=== PATIENT | female | born 1980 | race Caucasian/White ===

== ENCOUNTER 2020-04-10 10:07 | Emergency (ER) | payer SELFPAY ==
--- OUTSIDE RECORDS SUMMARY | 2020-04-10 10:10 | XMS REPORT | Clinical Summary ---
:1980 Author Organization [facility] Address [address] [place] [address] Care Team Providers Name Role Phone Asked, Pcp Primary Care Provider Unavailable Allergies Active Allergy Reactions Severity Noted Date Comments Aspirin 06/24/2018 Latex 06/24/2018 Morphine Other (See Comments) High 11/04/2018 Halluci nation, and very violent Onion Medium 03/28/2019 Swelling Allergic to ligia ons only, can have fruit Vancomycin Itching High 11/04/2018 Medications Medication Sig Dispensed Refills Start Date End Date Status gabapentin Take 400 mg by 0 Acti ve (NEURONTIN) 400 mg mouth 3 capsule (three) times a day. lisinopril Take 20 mg by 0 Activ e (PRINIVIL,ZESTRIL) mouth 2 (two) 20 mg tablet times a day. nicotine (NICODERM Place 1 patch 0 Active CQ) 7 mg/24 hr on the skin daily. ondansetron Take 4 mg by 0 Activ e (ZOFRAN) 4 MG mouth every 8 tablet (eight) hours as needed for nausea or vomiting. QUEtiapine Take 100 mg by 0 Acti ve (SEROquel) 100 MG mouth nightly. tablet docusate sodium Take 1 capsule 60 capsule 0 03/29/2019 0 (COLACE) 100 MG (100 mg total) 19 capsule by mouth 2 (two) times a day for 30 days. sucralfate Take 1 tablet 120 tablet 0 03/29/2019 04/28/20 Exp ired (CARAFATE) 1 gram (1 g total) by 19 tablet mouth 4 (four) times a day for 30 days. pantoprazole Take 1 tablet 60 tablet 0 03/29/2019 04/28/20 Ex pired (PROTONIX) 40 MG (40 mg total) 19 EC tablet by mouth 2 (two) times a day for 30 days. sucralfate Take 1 tablet 120 tablet 0 03/29/2019 04/28/20 Exp ired (CARAFATE) 1 gram (1 g total) by 19 tablet mouth 4 (four) times a day for 30 days. acetaminophen Take 2 tablets 60 tablet 0 04/17/2019 05/17/20 (TYLENOL) 325 MG (650 mg total) 19 tablet by mouth every 6 (six) hours as needed for headaches for up to 30 days. butalbital-acetami Take 1 tablet 30 tablet 0 04/17/2019 Discontinued nophen-caff by mouth every 19 (Re order) (FIORICET, ESGIC) 6 (six) hours 50-325-40 mg per as needed for tablet headaches for up to 30 days. methocarbamol Take 1 tablet 120 tablet 0 04/17/2019 05/17/20 (ROBAXIN) 500 MG (500 mg total) 19 tablet by mouth 4 (four) times a day for 30 days. butalbital-acetami Take 1 tablet 30 tablet 0 04/25/2019 nophen-caff by mouth every 19 (FIORICET, ESGIC) 6 (six) hours 50-325-40 mg per as needed for tablet headaches for up to 30 days. Active Problems Problem Noted Date Acute intractable headache 04/14/2019 Infected cat bite 11/04/2018 Status migrainosus 06/24/2018 Encounters Date Type Specialty Care Team Description 04/27/2019 Telephone Gastroenterology Saad rBadford MD 04/25/2019 Emergency Emergency Medicine Vincenzo, Adryan Nonintrac table Mohammad, DO episodic headac he, unspecified hea dache type (Primary D x) 04/13/2019 - Hospital Encounter Neurosurgery Tracy, Acute int ractable headache, unspecified headache type (Primary Dx); 04/17/2019 MD Kei Intractable episodic cluster headache; Faustino, Status migraino jhonatan Rivas MD after 04/10/2019 Social History Tobacco Use Types Packs/Day Years Used Date Current Every Day Smoker Cigarettes 0.5 Smokeless Tobacco: Never Used Alcohol Use Drinks/Week oz/Week Comments Yes rare Sex Assigned at Date Recorded Not on file Job Start Date Occupation Industry Not on file Not on file Not on file Travel History Travel Start Travel End No recent travel history available. Last Filed Vital Signs Vital Sign Reading Time Taken Comments Blood Pressure 172/86 04/25/2019 11:24 AM CDT Pulse 94 04/25/2019 11:24 AM CDT Temperature 36.7 C (98.1 F) 04/25/2019 11:24 AM CDT Respiratory Rate 18 04/25/2019 11:24 AM CDT Oxygen Saturation 95% 04/25/2019 11:24 AM CDT Inhaled Oxygen Concentration - - Weight 90.7 kg (200 lb) 04/25/2019 11:24 AM CDT Height 160 cm (5' 3") 04/25/2019 11:24 AM CDT Body Mass Index 35.43 04/25/2019 11:24 AM CDT Plan of Treatment Health Maintenance Due Date Last Done Comments CERVICAL CANCER SCREENING 11/19/1999 INFLUENZA VACCINE 05/01/2020 Implants Implanted Type Area Pharmacy Messenger Device Shelf Model / Identifier Expiration Serial / Date Lot Valve Strata Reg Hydcepls Adjstbl Ltxf - [id number] Cardiovascul ar N/A: [employer] PS 10/29/2021 [id number] / Implanted: Qty: 1 on 03/09/2019 by Irma Tucker MD at [facility] Implants N/A MEDICAL / [id number] Screw Bone Slf-Drl Mtrxnuro Ti 4mm - [id number] Cranial Plate or N/A: SYNTHES [id number] / Implanted: Qty: 6 on 03/09/2019 by Irma Tucker MD at [facility] [place] Cover N/A MAXIOFACIAL / IMPLANT Screw Bone Slf-Drl Mtrxnuro Ti 4mm - [id number] Cranial Plate or N/A: SYNTHES [id number] / Implanted: Qty: 1 on 03/09/2019 by Irma Tucker MD at [facility] [place] Cover N/A MAXIOFACIAL / IMPLANT Cover [place] Mtrxnuro For Shunt Ti Bl 17mm - [id number] Spinal Implants N/A: SYNTHES [id number] / Implanted: Qty: 1 on 03/09/2019 by Irma Tucker MD at [facility] N/A MAXIOFACIAL / IMPLANT Cover [place] Mtrxnuro For Shunt Ti Bl 17mm - [id number] Spinal Implants N/A: SYNTHES [id number] / Implanted: Qty: 1 on 03/09/2019 by Irma Tucker MD at [facility] N/A MAXIOFACIAL / IMPLANT Connector Lmbpertnl Str - [id number] Surgical N/A: [employer]IC [id number] / Implanted: Qty: 1 on 03/09/2019 by Irma Tucker MD at [facility] Implantable N/A NEUROSURGERY / Shunts or Shunt Extenders Procedures Procedure Name Priority Date/Time Associated Comments Diagnosis XR ABDOMEN 1 VW STAT 04/25/2019 12:46 Results for this PM CDT procedure are i n the results section. XR CERVICAL SPINE 1 VW STAT 04/25/2019 12:46 R esults for this PM CDT procedure are i n the results section. XR CHEST 1 VW STAT 04/25/2019 12:45 Results fo r this PM CDT procedure are i n the results section. XR SKULL < 4 VW STAT 04/25/2019 12:45 Results for this PM CDT procedure are i n the results section. CT HEAD WO CONTRAST STAT 04/25/2019 12:05 Resu lts for this PM CDT procedure are i n the results section. ESTIMATED GFR STAT 04/25/2019 11:41 Results fo r this AM CDT procedure are i n the results section. BASIC METABOLIC PANEL STAT 04/25/2019 11:41 Re sults for this AM CDT procedure are i n the results section. HC COMPLETE BLD COUNT STAT 04/25/2019 11:38 Re sults for this W/AUTO DIFF AM CDT procedure are i n the results section. ECG 12-LEAD STAT 04/17/2019 4:39 Results for this PM CDT procedure are i n the results section. NM TC 99M CSF SHUNT Routine 04/16/2019 12:59 Resu lts for this PATENCY PM CDT procedure are i n the results section. ESTIMATED GFR Routine 04/16/2019 2:37 Results fo r this AM CDT procedure are i n the results section. PHOSPHORUS LEVEL Routine 04/16/2019 2:37 Results for this AM CDT procedure are i n the results section. BASIC METABOLIC PANEL Routine 04/16/2019 2:37 Re sults for this AM CDT procedure are i n the results section. HC COMPLETE BLD COUNT Routine 04/16/2019 2:22 Re sults for this W/AUTO DIFF AM CDT procedure are i n the results section. XR CHEST 1 VW PORTABLE Routine 04/16/2019 12:43 R esults for this AM CDT procedure are i n the results section. XR ABDOMEN 1 VW Routine 04/16/2019 12:43 Results for this AM CDT procedure are i n the results section. IR LUMBAR PUNCTURE Routine 04/14/2019 3:03 Resul ts for this PM CDT procedure are i n the results section. PROTEIN, CSF Routine 04/14/2019 2:51 Results for this PM CDT procedure are i n the results section. GLUCOSE LEVEL, CSF Routine 04/14/2019 2:51 Resul ts for this PM CDT procedure are i n the results section. CSF CELL COUNT WITH Routine 04/14/2019 2:51 Resu lts for this DIFFERENTIAL PM CDT procedure are i n the results section. GRAM STAIN Routine 04/14/2019 2:51 Results for this PM CDT procedure are i n the results section. CSF CULTURE Routine 04/14/2019 2:51 Results for this PM CDT procedure are i n the results section. CT HEAD WO CONTRAST STAT 04/13/2019 11:57 Resu lts for this PM CDT procedure are i n the results section. HCG QUALITATIVE, URINE Routine 04/13/2019 11:39 R esults for this SCREEN PM CDT procedure are i n the results section. XR SKULL < 4 VW STAT 04/13/2019 8:43 Results for this PM CDT procedure are i n the results section. XR CHEST 2 VW STAT 04/13/2019 8:43 Results fo r this PM CDT procedure are i n the results section. XR CERVICAL SPINE 2 OR STAT 04/13/2019 8:43 R esults for this 3 VW PM CDT procedure are i n the results section. XR ABDOMEN AP AND STAT 04/13/2019 8:42 Result s for this LATERAL PM CDT procedure are i n the results section. ESTIMATED GFR STAT 04/13/2019 8:30 Results fo r this PM CDT procedure are i n the results section. COMPREHENSIVE STAT 04/13/2019 8:30 Results fo r this METABOLIC PANEL PM CDT procedure ar e in the results section. HC COMPLETE BLD COUNT STAT 04/13/2019 8:30 Re sults for this W/AUTO DIFF PM CDT procedure are i n the results section. after 04/10/2019 Results XR Abdomen 1 Vw (04/25/2019 12:46 PM CDT)Only the most recent of2 resultswithin the time period is included. Specimen Narrative Performed At Study:XR CERVICAL SPINE 1 VW, XR CHEST 1 VW, XR ABDOME N 1 VW, XR SKULL HM [facility] 4 VW History:headache shut eval COMPARISON:March 25, 2019 IMPRESSION: Single view of the skull, single view of the neck, sin gle view of the chest, 2 views of the abdomen. Right frontal approach [employer] shunt intact without discont inuity or kinking. The shunt courses on the right side of the head, neck, chest, abdomen with tip at the level of the pelvis. No acute osseous or soft tissue abnormality. No consol idation, pleural effusion, or pneumothorax. No bowel distention or free air. Large amount of stool present in the colon. Visualized bones withou t acute abnormality. [id number] Procedure Note Interface, Radiology Results Incoming - 04/25/2019 12:57 PM CDT Study:XR CERVICAL SPINE 1 VW, XR CHEST 1 VW, XR ABDOMEN 1 VW, XR SKULL 4 VW History:headache shut eval COMPARISON:March 25, 2019 IMPRESSION: Single view of the skull, single view of the neck, single view of the chest, 2 views of the abdomen. Right frontal approach [employer] shunt intact w ithout discontinuity or kinking. The shunt courses on the right side of the head, neck, chest, abdomen with tip at the level of the pelvis. No acute osseous or soft tissue abnormal ity. No consolidation, pleural effusion, or pneumothorax. No bowel distention or free air. Large amount of stool present in the colon. Visualized bones without acute abnormality. [id number] Performing Organization Address City/State/Zipcode Phone Number [facility] [address] [place] [address] XR Cervical Spine 1 Vw (04/25/2019 12:46 PM CDT) Specimen Narrative Performed At Study:XR CERVICAL SPINE 1 VW, XR CHEST 1 VW, XR ABDOME N 1 VW, XR SKULL [facility] 4 VW History:headache shut eval COMPARISON:March 25, 2019 IMPRESSION: Single view of the skull, single view of the neck, sin gle view of the chest, 2 views of the abdomen. Right frontal approach [employer] shunt intact without discont inuity or kinking. The shunt courses on the right side of the head, neck, chest, abdomen with tip at the level of the pelvis. No acute osseous or soft tissue abnormality. No consol idation, pleural effusion, or pneumothorax. No bowel distention or free air. Large amount of stool present in the colon. Visualized bones withou t acute abnormality. [id number] Procedure Note Interface, Radiology Results Incoming - 04/25/2019 12:57 PM CDT Study:XR CERVICAL SPINE 1 VW, XR CHEST 1 VW, XR ABDOMEN 1 VW, XR SKULL 4 VW History:headache shut eval COMPARISON:March 25, 2019 IMPRESSION: Single view of the skull, single view of the neck, single view of the chest, 2 views of the abdomen. Right frontal approach [employer] shunt intact w ithout discontinuity or kinking. The shunt courses on the right side of the head, neck, chest, abdomen with tip at the level of the pelvis. No acute osseous or soft tissue abnormal ity. No consolidation, pleural effusion, or pneumothorax. No bowel distention or free air. Large amount of stool present in the colon. Visualized bones without acute abnormality. [id number] Performing Organization Address City/State/Zipcode Phone Number [facility] [address] [place] [address] XR Chest 1 Vw (04/25/2019 12:45 PM CDT) Specimen Narrative Performed At Study:XR CERVICAL SPINE 1 VW, XR CHEST 1 VW, XR ABDOME N 1 VW, XR SKULL HM [facility] 4 VW History:headache shut eval COMPARISON:March 25, 2019 IMPRESSION: Single view of the skull, single view of the neck, sin gle view of the chest, 2 views of the abdomen. Right frontal approach [employer] shunt intact without discont inuity or kinking. The shunt courses on the right side of the head, neck, chest, abdomen with tip at the level of the pelvis. No acute osseous or soft tissue abnormality. No consol idation, pleural effusion, or pneumothorax. No bowel distention or free air. Large amount of stool present in the colon. Visualized bones withou t acute abnormality. [id number] Procedure Note Interface, Radiology Results Incoming - 04/25/2019 12:57 PM CDT Study:XR CERVICAL SPINE 1 VW, XR CHEST 1 VW, XR ABDOMEN 1 VW, XR SKULL 4 VW History:headache shut eval COMPARISON:March 25, 2019 IMPRESSION: Single view of the skull, single view of the neck, single view of the chest, 2 views of the abdomen. Right frontal approach [employer] shunt intact w ithout discontinuity or kinking. The shunt courses on the right side of the head, neck, chest, abdomen with tip at the level of the pelvis. No acute osseous or soft tissue abnormal ity. No consolidation, pleural effusion, or pneumothorax. No bowel distention or free air. Large amount of stool present in the colon. Visualized bones without acute abnormality. [id number] Performing Organization Address City/State/Zipcode Phone Number [facility] [address] [place] [place] [address] XR Skull < 4 Vw (04/25/2019 12:45 PM CDT)Only the most recent of2 results within the time period is included. Specimen Narrative Performed At Study:XR CERVICAL SPINE 1 VW, XR CHEST 1 VW, XR ABDOME N 1 VW, XR SKULL HM [facility] 4 VW History:headache shut eval COMPARISON:March 25, 2019 IMPRESSION: Single view of the skull, single view of the neck, sin gle view of the chest, 2 views of the abdomen. Right frontal approach [employer] shunt intact without discont inuity or kinking. The shunt courses on the right side of the head, neck, chest, abdomen with tip at the level of the pelvis. No acute osseous or soft tissue abnormality. No consol idation, pleural effusion, or pneumothorax. No bowel distention or free air. Large amount of stool present in the colon. Visualized bones withou t acute abnormality. [id number] Procedure Note Interface, Radiology Results Incoming - 04/25/2019 12:57 PM CDT Study:XR CERVICAL SPINE 1 VW, XR CHEST 1 VW, XR ABDOMEN 1 VW, XR SKULL 4 VW History:headache shut eval COMPARISON:March 25, 2019 IMPRESSION: Single view of the skull, single view of the neck, single view of the chest, 2 views of the abdomen. Right frontal approach [employer] shunt intact w ithout discontinuity or kinking. The shunt courses on the right side of the head, neck, chest, abdomen with tip at the level of the pelvis. No acute osseous or soft tissue abnormal ity. No consolidation, pleural effusion, or pneumothorax. No bowel distention or free air. Large amount of stool present in the colon. Visualized bones without acute abnormality. [id number] Performing Organization Address City/State/Zipcode Phone Number [facility] [address] [place] [address] CT Head Wo Contrast (04/25/2019 12:05 PM CDT)Only the most recent of2 results within the time period is included. 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 TECHNIQUE: Noncontrast enhanced images of the brain we re obtained from the skull base to the vertex. Both soft tissue and bon e reconstruction algorithms were performed. CT scans are performed us ing radiation dose reduction techniques. Technical factors are evaluated and adjusted to ensure appropriate moder ation of exposure. Automated dose management technology is applied to adj ust radiation exposure while achieving a diagnostic qu ality image. FINDINGS: Artifacts obscure some details. There is a right frontal intraventricular shunt cathet er which is relatively stable. There is relatively stable decrease d density in the right frontal lobe around the catheter. There is no ev idence of acute intracranial hemorrhage or mass, hydroce phalus or midline shift, stroke or thrombus in the vessels. T he ventricles are small appearing. This is relatively stable. The sella is enlarged and partially empty. The orbits, sinuses and mastoid air cells do not show acute abnormality. There is mild mucosal thickening in the left ethmoid s inus which is stable. The nasal septum is deviated. There is nonspec ific increased bone density. IMPRESSION: No significant changes in the brain or extra axial reg ion compared to prior exam. The ventricles are small. Th is is stable however. Nonspecific enlarged partially empty deb la. Nonspecific mild mucosal thickening in t he left ethmoid sinus. 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 TECHNIQUE: Noncontrast enhanced images o f the brain were obtained from the skull base to the vertex. Both soft tissue and bone reconstruction algorithms were performed. CT scans are performed using radiation dose reduction techniques. Technical factors are evaluated and adjusted to ensure belle ropriate moderation of exposure. Automated dose management technology is applied to adjust radiation exposure while achieving a diagnostic quality image. FINDINGS: Artifacts obscure some details. There is a right frontal intraventricula r shunt catheter which is relatively stable. There is relatively stable decreased density in the right frontal lobe around the catheter. There is no evidence of acute intracranial hemorrhage or mass, hydroce phalus or midline shift, stroke or thrombus in the vessels. The ventricles are small appearing. This is relatively stable. The sella is enlarged and partially empty. The orbits, sinuses and mastoid air cell s do not show acute abnormality. There is mild mucosal thickening in the left ethmoid sinus which is stable. The nasal septum is deviated. There is nonspecific increased bone density. IMPRESSION: No significant changes in the brain or e xtra axial region compared to prior exam. The ventricles are small. This is stable however. Nonspecific enlarged partially empty deb la. Nonspecific mild mucosal thickening in t he left ethmoid sinus. [facility]-[id number] Performing Organization Address City/[facility]/Zipcode Phone Number [facility] [address] [place] [address] Estimated GFR (04/25/2019 11:41 AM CDT)Only the most recent of3 resultswithin the time period is included. Pathologist [facility] Estimated GFR >=90 mL/min/1.73 [facility] Comment: [address] Catergory Units Interpretation HOS PITAL G1 >=90 Normal or high G2 60-89 Mildly decreased G3a 45-59 Mildly to moderately decreas ed G3b 30-44 Moderately to severely decre ased G4 15-29 Severely decreased G5 <15 Kidney failure The eGFR was calculated using the Chronic Kidney Disea se Epidemiology Collaboration (CKD-EPI) equation. Interpretation is based on recommendations of the National Kidney Foundation-Kidney Disease Outcomes Daniel lity Initiative (NKF-KDOQI) published in 2014. Specimen Plasma specimen Performing Organization Address City/[facility]/Zipcode Phone Number [facility] DEPARTMENT OF PATHOLOGY AND [address] [place] [address] GENOMIC MEDICINE [facility] [address] [place], [place] [address] [facility] Basic metabolic panel (04/25/2019 11:41 AM CDT)Only the most recent of2 results within the time period is included. Pathologist [facility] nature Sodium 141 135 - 148 mEq/L [facility] Potassium 4.2 3.5 - 5.0 mEq/L [facility] Chloride 107 98 - 112 mEq/L [facility] CO2 23 (L) 24 - 31 mEq/L [facility] Anion gap 11@ANIO 7 - 15 mEq/L [facility] BUN 10 6 - 20 mg/dL [facility] Creatinine 0.70 0.50 - 0.90 mg/dL [facility] Glucose 108 (H) 65 - 99 mg/dL [facility] Calcium 9.5 8.3 - 10.2 mg/dL [facility] Specimen Plasma specimen Performing Organization Address City/State/Zipcode Phone Number [facility] DEPARTMENT OF PATHOLOGY AND [address] [place] [address] GENOMIC MEDICINE [facility] [address] [place], [place] [address] [facility] CBC with platelet and differential (04/25/2019 11:38 AM CDT)Only the most recent of3 resultswithin the time period is included. Pathologist Sig nature WBC 11.49 (H) 4.50 - 11.00 k/uL [facility] RBC 4.32 4.20 - 5.50 m/uL [facility] HGB 12.4 12.0 - 16.0 g/dL [facility] HCT 37.9 37.0 - 47.0 % [facility] MCV 87.7 82.0 - 100.0 fL [facility] MCH 28.7 27.0 - 34.0 pg [facility] MCHC 32.7 31.0 - 37.0 g/dL [facility] RDW - SD 46.5 37.0 - 55.0 fL [facility] MPV 10.7 8.8 - 13.2 fL [facility] Platelet count 316 150 - 400 k/uL [facility] Nucleated RBC 0.00 /100 WBC [facility] Neutrophils 60.8 39.0 - 69.0 % [facility] Lymphocytes 31.2 25.0 - 45.0 % [facility] Monocytes 5.1 0.0 - 10.0 % [facility] Eosinophils 1.8 0.0 - 5.0 % [facility] Basophils 0.5 0.0 - 1.0 % [facility] Specimen Blood Performing Organization Address City/State/Zipcode Phone Number [facility] DEPARTMENT OF PATHOLOGY AND [address] [place] [address] GENOMIC MEDICINE [facility] [address] [place], [place] [address] HOSPITAL ECG 12 lead (04/17/2019 4:39 PM CDT) Pathologist Sig nature Ventricular rate 93 [facility] Atrial rate 93 [facility] [place] interval 132 [facility] QRSD interval 86 [facility] QT interval 368 [facility] QTC interval 457 [facility] P axis 1 48 [facility] QRS axis 1 24 [facility] T wave axis 52 [facility] EKG impression Normal sinus [facility] MUSE rhythm-Normal ECG-In automated comparison with ECG of 25-MAR-2019 18:28,-No significant change was found- Specimen Narrative Performed At This result has an attachment that is no t available. Performing Organization Address City/State/Zipcode Phone Number [facility] MUSE [address] [place] [address] NM Tc 99M Csf Shunt Patency (04/16/2019 12:59 PM CDT) Specimen Narrative Performed At PROCEDURE: NM TC 99M CSF SHUNT PATENCY [facility] INDICATION: Evaluate [employer] shunt patency. TECHNIQUE: The patient was injected with 1 mCi of Tc -99m DTPA into the [employer] shunt reservoir by a client support representative from the Neuros urgery service. Tracer was sterilized by filtration through a 0.2 micr on inline filter. Planar dynamic images of the shunt were obtained. FINDINGS: Tracer migration through the right [employer] shun t is normal. Activity is seen within the distal tubing by 10 caden shaun with subsequent normal mixing of tracer with peritoneal fluid. IMPRESSION: 1. Normally functioning [employer] shunt. [facility]-[id number] Procedure Note Interface, Radiology Results Incoming - 04/16/2019 2:14 PM CDT PROCEDURE: NM TC 99M CSF SHUNT PATENCY INDICATION: Evaluate [employer] shunt patency. TECHNIQUE: The patient was injected wit h 1 mCi of Tc-99m DTPA into the [employer] shunt reservoir by a client support representative from the Neurosurgery service. Tracer was sterilized by filtration through a 0.2 micron inline filter. Planar dynamic images of the shunt were obtained. FINDINGS: Tracer migration through the right ENGRAVER [employer]AT[employer] shunt is normal. Activity is seen within the distal tubing by 10 minutes with subsequent normal mixing of tracer with peritoneal fluid. IMPRESSION: 1. Normally functioning ENGRAVER [employer]AT[employer] shunt. [id number] Performing Organization Address [facility] Phone Number [facility] [address] [place] [address] Phosphorus level (04/16/2019 2:37 AM CDT) Pathologist [facility] Phosphorus 2.7 2.4 - 4.5 mg/dL [facility] L Specimen Plasma specimen Performing Organization Address [facility] Phone Number [facility] DEPARTMENT OF PATHOLOGY AND [address] [place] [address] [phone] GENOMIC MEDICINE [address] [address] XR Chest 1 Vw Portable (04/16/2019 12:43 AM CDT) Specimen Narrative Performed At EXAMINATION: XR CHEST 1 VW PORTABLE [facility] CLINICAL HISTORY: shunt catheter movem ent COMPARISON: 04/13/2019 IMPRESSION: Right-sided ventriculoperitoneal shunt catheter is int act, without kink or fracture. Chronic appearing interstitial lung markings. No conso lidations, effusions, or pneumothorax. Cardiac silhouette is upper normal. No acute osseous abnormalities. [facility]-[id number] Procedure Note Interface, Radiology Results Incoming - 04/16/2019 5:04 AM CDT EXAMINATION: XR CHEST 1 VW PORTABLE CLINICAL HISTORY: shunt catheter moveme nt COMPARISON: 04/13/2019 IMPRESSION: Right-sided ventriculoperitoneal shunt c atheter is intact, without kink or fracture. Chronic appearing interstitial lung joseluis ings. No consolidations, effusions, or pneumothorax. Cardiac silhouette is upper normal. No acute osseous abnormalities. [facility]-[id number] Performing Organization Address [facility] Phone Number [facility] [address] [place] [address] IR Lumbar Puncture by Radiology (04/14/2019 3:03 PM CDT) Specimen Narrative Performed At EXAMINATION: IR LUMBAR PUNCTURE [facility] CLINICAL HISTORY: recent ENGRAVER FLAT[employer] shunt revi luis SMITH COMPARISON: None. Findings: Informed consent was obtained. Lower back was prepped and draped in usual sterile fashion. 1% lidocaine was used for local anesthesia. A 22-gauge 3.5 inch needle was advanced into spinal ca nal at the L4-L5 level under intermittent fluoroscopic gu idance. Opening pressure was 22 cm of water 13 cc of clear CSF fluid was withdrawn. No complications. Total fluoroscopic time was 1 minute with 18 seconds. Total air kerma was 37 mGy. IMPRESSION: Successful fluoroscopic guided lumbar pu ncture. [facility]-[id number] Procedure Note Hm Interface, Radiology Results Incoming - 04/14/2019 4:21 PM CDT EXAMINATION: IR LUMBAR PUNCTURE CLINICAL HISTORY: recent ENGRAVER FLATWARE shunt olya ion SMITH COMPARISON: None. Findings: Informed consent was obtained. Lower moses k was prepped and draped in usual sterile fashion. 1% lidocaine was used for local anesthesia. A 22-gauge 3.5 inch needle was advanced into spinal canal at the L4-L5 level under intermittent fluoroscopic guidance. Opening pressure was 22 cm of water 13 cc of clear CSF fluid was withdrawn. No complications. Total fluoroscopic time was 1 minute wit h 18 seconds. Total air kerma was 37 mGy. IMPRESSION: Successful fluoroscopic guided lumbar pu ncture. [facility]-[id number] Performing Organization Address City/[facility] Phone Number [facility] [address] [place] [id number] Gram stain (04/14/2019 2:51 PM CDT) Gram stain isolate No WBC's or organisms seen. [facility] Specimen Information Specimen Source: CSF (Spinal Fluid) Specimen Site: No tube number noted Specimen Cerebrospinal fluid - No tube number not ed Performing Organization Address City/[facility] Phone Number [facility] DEPARTMENT OF PATHOLOGY AND [address] [place] [address] [phone] [address] CSF culture (04/14/2019 2:51 PM CDT) CSF culture No growth after 72 hours [facility] isolate Comment: HOSPITAL Specimen Information Specimen Source: CSF (Spinal Fluid) Specimen Site: No tube number noted Specimen Cerebrospinal fluid - No tube number not ed Performing Organization Address [facility] [place]/[facility] Phone Number [facility] DEPARTMENT OF PATHOLOGY AND [address] [place] [address] [phone] [place] [address] CSF cell count with differential (04/14/2019 2:51 PM CDT) Pathologist Sig nature Color, CSF Colorless [facility] Appearance, CSF Clear [facility] RBC, CSF 8 (H) 0 - 1 /CMM [facility] WBC, CSF 2 0 - 5 /CMM [facility] CSF mononuclear cell 2/CMM [facility] Specimen Cerebrospinal fluid Performing Organization Address City/[facility] Phone Number [facility] DEPARTMENT OF PATHOLOGY AND [address] [place] [address] [phone] [address] Protein, CSF (04/14/2019 2:51 PM CDT) Pathologist Sig nature Protein, CSF 42 15 - 45 mg/dL [facility] Specimen Cerebrospinal fluid Performing Organization Address [facility] [place]/[facility] Phone Number [facility] DEPARTMENT OF PATHOLOGY AND [address] [place] [address] [phone] [address] Glucose level, CSF (04/14/2019 2:51 PM CDT) Pathologist Sig nature Glucose, CSF 62 40 - 70 mg/dL [facility] Specimen Cerebrospinal fluid Performing Organization Address [facility] Phone Number [facility] DEPARTMENT OF PATHOLOGY AND [address] [place] [address] [phone] [address] hCG qualitative, urine screen (04/13/2019 11:39 PM CDT) hCG qualitative, NegativeComment: [facility] urine Sensitivity of HCG [facility] test: 25 mIU/mL Specimen Urine Performing Organization Address City/[facility] Phone Number [facility] DEPARTMENT OF PATHOLOGY AND [address] [place] [address] [phone] [address] XR Chest 2 Vw (04/13/2019 8:43 PM CDT) Specimen Narrative Performed At Examination: XR CHEST 2 VW [facility] Clinical History: Fatigue and malaise Comparison: 03/25/2019. Technique: Frontal and lateral views of the chest were obtained. Findings: Lungs and pleural surfaces are clear. Cardiomediastina l silhouette and pulmonary vascularity are within normal limits. Bones are intact. [employer]RAVER [employer] shunt courses over the right chest. Impression: No active cardiopulmonary disease identi fied. [facility]-[id number] Procedure Note Interface, Radiology Results Incoming - 04/13/2019 8:56 PM CDT Examination: XR CHEST 2 VW Clinical History: Fatigue and malaise Comparison: 03/25/2019. Technique: Frontal and lateral views of the chest were obtained. Findings: Lungs and pleural surfaces are clear. Ca rdiomediastinal silhouette and pulmonary vascularity are within normal limits. Bones are intact. [employer]VER [employer] shunt courses over the right chest. Impression: No active cardiopulmonary disease identi fied. [facility]-[id number] Performing Organization Address [facility] Phone Number [facility] [address] [place] [address] XR Cervical Spine 2 Or 3 Vw (04/13/2019 8:43 PM CDT) Specimen Narrative Performed At EXAMINATION: XR CERVICAL SPINE 2 OR 3 VW [facility] CLINICAL HISTORY: Neck pain initial ex am COMPARISON: 03/25/2019. IMPRESSION: 2 views provided. Radiodense portions of the radiodense tubing appear in tact as it traverses the right neck at chest wall s oft tissues. C1-C7 vertebrae visualized. The alignment is within normal limits. N o subluxation. Vertebral body and intervertebral disc h eights are preserved. No prevertebral soft tissue swelling. Tongue piercing noted. [facility]-[id number] Procedure Note Interface, Radiology Results Incoming - 04/13/2019 8:52 PM CDT EXAMINATION: XR CERVICAL SPINE 2 OR 3 VW CLINICAL HISTORY: Neck pain initial exa m COMPARISON: 03/25/2019. IMPRESSION: 2 views provided. Radiodense portions of the radiodense tu kendell appear intact as it traverses the right neck at chest wall soft tissues. C1-C7 vertebrae visualized. The alignment is within normal limits. N o subluxation. Vertebral body and intervertebral disc h eights are preserved. No prevertebral soft tissue swelling. Tongue piercing noted. [facility]-[id number] Performing Organization Address [facility] Phone Number [facility] [address] [place] [address] XR Abdomen Ap And Lateral (04/13/2019 8:42 PM CDT) Specimen Narrative Performed At EXAMINATION: XR ABDOMEN AP AND LATERAL [facility] CLINICAL HISTORY: Breakdown (mechanical) of surgically created arteriovenous shunt COMPARISON: 03/25/2019. FINDINGS: A right side [employer]VER [employer] shunt with the tip now within the mike on of the mid pelvis. There is no evidence of kinking or fracture of the visualized [employer] shunt along the abdomen. The bowel gas pattern is nons pecific. No radiopaque calcifications are identified . The lung bases are clear. Regional skeletal structures are within normal limits. IMPRESSION: Right ENGRAVER [employer]AT[employer] shunt along the right side of the abdomen rem ains intact without evidence of kinking or fracture. [id number] Procedure Note Hm Interface, Radiology Results Incoming - 04/13/2019 8:59 PM CDT EXAMINATION: XR ABDOMEN AP AND LATERAL CLINICAL HISTORY: Breakdown (mechanical) of surgically created arteriovenous shunt COMPARISON: 03/25/2019. FINDINGS: A right side ENGRAVER FLAT[employer] shunt with the tip now w ithin the region of the mid pelvis. There is no evidence of kinking or fracture of the visualized [employer] shunt along the abdomen. The bowel gas pattern is nonspecific. No radiopaque calcifications are identified . The lung bases are clear. Regional skeletal structures are within normal limits. IMPRESSION: Right ENGRAVER FLATWARE shunt along the right side of t he abdomen remains intact without evidence of kinking or fracture. [id number] Performing Organization Address City/State/Zipcode Phone Number [facility] [address] [place] [address] Comprehensive metabolic panel (04/13/2019 8:30 PM CDT) Sodium 146 135 - 148 [facility] mEq/L [facility] Potassium 4.2 3.5 - 5.0 [facility] mEq/L [facility] Chloride 106 98 - 112 [facility] mEq/L HOSPITAL CO2 25 24 - 31 mEq/L [facility] Anion gap 15@ANIO 7 - 15 mEq/L [facility] BUN 8 6 - 20 mg/dL [facility] Creatinine 0.93 (H) 0.50 - 0.90 [facility] mg/dL [facility] Glucose 123 (H) 65 - 99 mg/dL [facility] Calcium 9.5 8.3 - 10.2 [facility] mg/dL [facility] Protein 7.8 6.3 - 8.3 [facility] Comment: g/dL HOSPITAL 4.6-7.0 g/dL 1 week 4.4-7.6 g/dL 7 months-1year 5.1-7.3 g/dL 1-2 years 5.6-7.5 g/dL >3 years 6.0-8.0 g/dL 18-150 6.3-8.3 g/dL Albumin 3.5 3.5 - 5.0 [facility] g/dL HOSPITAL A/G ratio 0.8 0.7 - 3.8 [facility] Alkaline phosphatase 66 35 - 104 U/L [facility] AST 17 10 - 35 U/L [facility] ALT 17 5 - 50 U/L [facility] Total bilirubin 0.3 0.0 - 1.2 [facility] mg/dL [facility] Specimen Plasma specimen Performing Organization Address City/State/Zipcode Phone Number [facility] DEPARTMENT OF PATHOLOGY AND [address] [place], [place] [address] GENOMIC [address] [address] after 04/10/2019 Advance Directives For more information, please contact: [phone] Type Date Recorded Patient Health Care Liaison Explanati on Advance Directives, Living 06/24/2018 7:17 PM Will and Medical Power of Tests Superintendent Advance Directives, Living 11/04/2018 1:29 AM Will and Medical Power of Tests Superintendent Code Status Date Activated Date Inactivated Comments Full Code 03/27/2019 12:17 PM 03/29/2019 8:18 PM Code Status decision reached by: Patient
--- OUTSIDE RECORDS SUMMARY | 2020-04-10 10:11 | XMS REPORT | Continuity of Care Document ---
:1980 Author Organization [facility] t Address [address] [place] [address] Care Team Providers Name Role Phone Asked, Pcp Primary Care Physician Unavailable Sanchez PAZ Attending Clinician Monie Loya DO Attending Clinician Rossana PAZ Attending Clinician Carlie PAZ Attending Clinician ANTHONY Attending Clinician Unavailable CARLIE Admitting Clinician Unavailable ANTHONY Admitting Clinician Unavailable GERMAN Admitting Clinician Unavailable Payers Payer Name Policy Type Policy Number Effective Date Expiration Date S ource Problems Condition Condition Condition Status Onset Resolution Last Treating Co mments Source Name Details Category Date Date Treatment Clinician Date Acute Acute Disease Active [place] intractabl intractabl 9-14 Me thodi e headache e headache 00:00: st 00 Infected Infected Disease Active [place] cat bite cat bite 4-06 Method i 00:00: st 00 Status Status Disease Active 2017-08 [place] migrainosu migrainosu 1-24 Me thodi s s 00:00: st 00 Allergies, Adverse Reactions, Alerts Allergy Allergy Status Severity Reaction(s) Onset Inactive Treating Comm ents Source Name Type Date Date Clinician Onion Propensi Active Moderate Swelling [place] ty to 03-28 Allergic [facility]i adverse 00:00: to onions st reaction 00 only, can s to have drug fruit Morphine Propensi Active Other (See Hallucina [place] ty to Comments) 11-04 tion, and Meth vladislav adverse 00:00: very st reaction 00 violent s to drug Vancomyc Propensi Active Itching [place] in ty to 11-04 Methodi adverse 00:00: st reaction 00 s to drug Aspirin Propensi Active 2017-08 [place] ty to 08-24 Methodi adverse 00:00: st reaction 00 s to drug Latex Propensi Active 2017-08 [place] ty to 08-24 Methodi adverse 00:00: st reaction 00 s to drug onion DA Active MO 2017-08 [facility] 14 Clear 00:00: Rao 00 [facility] coconut DA Active SV 2017-08 [facility] 08-14 Clear 00:00: Rao [facility] bee DA Active SV 2017-08 [facility] 14 Clear 00:00: Rao 00 [facility] morphine DA Active MO [facility] 9-12 Clear 00:00: Rao 00 [facility] aspirin DA Active ID [facility] 9-12 Clear 00:00: Rao 00 [facility] latex DA Active ID [facility] 9-12 Clear 00:00: Rao 00 [facility] morphine DA Active U [facility] 8-30 [place] 00:00: d 00 [facility] aspirin DA Active U [facility] 8-30 [place] 00:00: d [facility] latex DA Active U [facility] 8-30 [place] 00:00: d 00 [facility] [place] Social History Social Habit Start Date Stop Date Quantity Comments Source History of tobacco Cigarette Smoker [place] use Taoist Sex Assigned At [place] Taoist Cigarettes smoked 2019-04-25 2019-04-25 [place] current (pack per 00:00:00 00:00:[address] day) - Reported Alcohol intake 2019-04-25 2019-04-25 Current drinker [place] 00:00:00 00:00:00 of alcohol Taoist (finding) Alcohol Comment 2019-04-25 2019-04-25 [facility] 00:00:00 00:00:00 Taoist Smoking Status Start Date Stop Date Source Current every day smoker 2019-04-25 00:00:00 Teres[facility] long Taoist Medications Ordered Filled Start Stop Current Ordering Indication Dosage Frequency Signature Comments Components Source Medication Medication Date Date Medication? Clinician (SIG) Name Name gloria- 2019- 2019- No 1{tbl} Q6H Take 1 [place] acetaminoph 9-25 10-25 tablet by Me thodi en-caff 00:00: 23:[address] (FIORICET, 00 :00 every 6 ESGIC) (six) 50-325-40 hours as mg per needed for tablet headaches for up to 30 days. gabapentin 2018- Yes 400mg Q.[id number] Take 400 [place] (NEURONTIN) 9-17 [id number] mg by M ethodi 400 mg 18:13: 3D mouth 3 st capsule 01 (three) times a day. lisinopril 2018-0 Yes 20mg Q.5D Take 20 mg [place] (PRINIVIL,Z 9-17 by mouth 2 Me thodi ESTRIL) 20 18:13: (two) st mg tablet 01 times a day. nicotine 2018- Yes 1{patch Q24H Place 1 Teresita mercedes (NICODERM 9-17 } patch on Method i CQ) 7 mg/24 18:13: the skin st hr 01 daily. ondansetron 2018-0 Yes 4mg Q8H Take 4 mg [place] (ZOFRAN) 4 9-17 by mouth Metho di MG tablet 18:13: every 8 st 01 (eight) hours as needed for nausea or vomiting. QUEtiapine 2018-0 Yes 100mg QD Take 100 [place] (SEROquel) 9-17 mg by Methodi 100 MG 18:13: mouth st tablet 01 nightly. acetaminoph 2018- 2019- No 650mg Q6H Take 2 [place] en 9-17 10-17 tablets Methodi (TYLENOL) 00:00: 23:59 ([address] 325 MG 00 :00 total) by tablet mouth every 6 (six) hours as needed for headaches for up to 30 days. methocarbam 2019- No 500mg Q.25D Take 1 [place] ol 9-17 10-17 tablet Methodi (ROBAXIN) 00:00: 23:59 ([address] 500 MG 00 :00 total) by tablet mouth 4 (four) times a day for 30 days. butalbital- 2019- No 1{tbl} Q6H Take 1 [place] acetaminoph 04-17 tablet by Me wright en-caff 00:00: 00:[address] (FIORICET, 00 :00 every 6 ESGIC) (six) 50-325-40 hours as mg per needed for tablet headaches for up to 30 days. docusate 2018- No 100mg Q.5D Take 1 [place] sodium 03-29 capsule Methodi (COLACE) 00:00: 23:59 ([address] 100 MG 00 :00 total) by capsule mouth 2 (two) times a day for 30 days. sucralfate 2018- No 1g Q.25D Take 1 Teresita ston (CARAFATE) 03-29 tablet (1 Met hodi 1 gram 00:00: 23:59 g total) st tablet 00 :00 by mouth 4 (four) times a day for 30 days. pantoprazol 2018- No 40mg Q.5D Take 1 Teresita ston e 03-29 tablet (40 Methodi (PROTONIX) 00:00: 23:59 mg total) s t 40 MG EC 00 :00 by mouth 2 tablet (two) times a day for 30 days. sucralfate 2018- No 1g Q.25D Take 1 Teresita ston (CARAFATE) 03-29 tablet (1 Met hodi 1 gram 00:00: 23:59 g total) st tablet 00 :00 by mouth 4 (four) times a day for 30 days. Vital Signs Vital Name Observation Time Observation Value Comments Source Systolic blood 2019-04-25 11:24:00 172 mm[Hg] Manda n Taoist pressure Diastolic blood 2019-04-25 11:24:00 86 mm[Hg] [place] Taoist pressure Heart rate 2019-04-25 11:24:00 94 /min Baldo Ching Body temperature 2019-04-25 11:24:00 36.72 Shereen Deena ton Taoist Respiratory rate 2019-04-25 11:24:00 18 /min Deena marr Taoist Body height 2019-04-25 11:24:00 160 cm Baldo Ching Body weight 2019-04-25 11:24:00 90.719 kg Baldo Ching BMI 2019-04-25 11:24:00 35.43 kg/m2 Baldo Ching Oxygen saturation in 2019-04-25 11:24:00 95 /min Baldo Ching Arterial blood by Pulse oximetry Procedures Procedure Date / Time Performed Performing Clinician Sourc e XR ABDOMEN 1 VW 2019-04-25 12:46:22 Maryann Loya XR CERVICAL SPINE 1 VW 2019-04-25 12:46:09 Maryann Loya XR CHEST 1 VW 2019-04-25 12:45:49 Maryann Loya XR SKULL < 4 VW 2019-04-25 12:45:[address] HEAD WO CONTRAST 2019-04-25 12:05:19 Maryann Loya ston Taoist BASIC METABOLIC PANEL 2019-04-25 11:41:00 Maryann Loya ESTIMATED GFR 2019-04-25 11:41:00 Maryann Loya HC COMPLETE BLD COUNT 2019-04-25 11:38:00 Maryann Loya W/AUTO DIFF ECG 12-LEAD 2019-04-17 16:39:22 ShaquilleelíasMichelle NM TC 99M CSF SHUNT 2019-04-16 12:59:03 Bhupendra Sandoval PATENCY BASIC METABOLIC PANEL 2019-04-16 02:37:00 Michael Harmon PHOSPHORUS LEVEL 2019-04-16 02:37:00 Michael Harmon ESTIMATED GFR 2019-04-16 02:37:00 Michael Harmon HC COMPLETE BLD COUNT 2019-04-16 02:22:00 Michael Harmon W/AUTO DIFF XR CHEST 1 VW PORTABLE 2019-04-16 00:43:30 Bhupendra Sandoval XR ABDOMEN 1 VW 2019-04-16 00:43:03 Bhupendra Sandoval IR LUMBAR PUNCTURE 2019-04-14 15:03:46 Jessica Goodman Baldo Ching CSF CULTURE 2019-04-14 14:51:00 Lorie Bautista GRAM STAIN 2019-04-14 14:51:00 Michael Harmon Emilie hopper CSF CELL COUNT WITH 2019-04-14 14:51:00 Lorie Bautista DIFFERENTIAL Benedict GLUCOSE LEVEL, CSF 2019-04-14 14:51:00 Lorie Bautista M ethodist Benedict PROTEIN, CSF 2019-04-14 14:51:[address] HEAD WO CONTRAST 2019-04-13 23:57:22 Kei Tracy HCG QUALITATIVE, URINE 2019-04-13 23:39:00 Yousuf Salgado SCREEN XR SKULL < 4 VW 2019-04-13 20:43:46 Kei Tracy Met hodist XR CHEST 2 VW 2019-04-13 20:43:33 Kei Tracy Met hodist XR CERVICAL SPINE 2 OR 3 2019-04-13 20:43:20 Kei Tracy VW XR ABDOMEN AP AND LATERAL 2019-04-13 20:42:14 Kei Tracy HC COMPLETE BLD COUNT 2019-04-13 20:30:00 Kei Tracy on Taoist W/AUTO DIFF COMPREHENSIVE METABOLIC 2019-04-13 20:30:00 Kei Tracy PANEL ESTIMATED GFR 2019-04-13 20:30:00 RehYousuf donis Plan of Care Planned Activity Planned Date Details Comments Source Future Scheduled 2020-05-01 INFLUENZA VACCINE [place] [facility] Test 00:00:00 [code = INFLUENZA VACCINE] Future Scheduled 1999-11-19 Screening for [place] thodist Test 00:00:00 malignant neoplasm of cervix (procedure) [code = 974147379] Encounters Start End Encounter Admission Attending Care Care Encounter Source Date/Time Date/Time Type Type Clinicians Facility Department ID 2019-04-13 2019-04-17 Inpatient [facility] [id number] [place] 00:00:00 00:00:00 MICHAEL [address] 2019-03-25 2019-03-29 Inpatient LORIE CRUZ [facility] [id number] [place] 00:00:00 00:00:[address] 2019-03-03 2019-03-11 Inpatient LORIE CRUZ [facility] [id number] [place] 00:00:00 00:00:[address] 2019-03-02 2019-03-03 Emergency MARYANN LOYA [facility] [id number] [place] 00:00:00 00:00:[address] Results Test Description Test Time Test Comments Results Result Sourc e Comments XR Skull < 4 Vw 2019-04-02 Interface, [place] 5 Radiology Results [facility] 12:54:22 - 04/25/2019 12:57 PM CDTStudy:XR CERVICAL SPINE 1 VW, XR CHEST 1 VW, XR ABDOMEN 1 VW, XR SKULL 4 VWHistory:headache shut evalCOMPARISON:March 25, 2019IMPRESSION:Single view of the skull, single view of the neck, single view of the chest, 2 views of the abdomen.Right frontal approach WINDOW REPAIRER shunt intact without discontinuity or kinking. The shunt courses on the right side of the head, neck, chest, abdomen with tip at the level of the pelvis.No acute osseous or soft tissue abnormality. No consolidation, pleural effusion, or pneumothorax. No bowel distention or free air. Large amount of stool present in the colon. Visualized bones without acute abnormality.[id number] XR Abdomen 1 Vw 2019-04-02 Interface, [place] 5 Radiology Results [facility] 12:54:22 - 04/25/2019 12:57 PM CDTStudy:XR CERVICAL SPINE 1 VW, XR CHEST 1 VW, XR ABDOMEN 1 VW, XR SKULL 4 VWHistory:headache shut evalCOMPARISON:March 25, 2019IMPRESSION:Single view of the skull, single view of the neck, single view of the chest, 2 views of the abdomen.Right frontal approach WINDOW REPAIRER shunt intact without discontinuity or kinking. The shunt courses on the right side of the head, neck, chest, abdomen with tip at the level of the pelvis.No acute osseous or soft tissue abnormality. No consolidation, pleural effusion, or pneumothorax. No bowel distention or free air. Large amount of stool present in the colon. Visualized bones without acute abnormality.[id number]-[id number] [id number] XR Chest 1 Vw 2019-04-02 [facility] 5 Radiology Results Methodi 12:54:22 - 04/25/2019 12:57 PM CDTStudy:XR CERVICAL SPINE 1 VW, XR CHEST 1 VW, XR ABDOMEN 1 VW, XR SKULL 4 VWHistory:headache shut evalCOMPARISON:March 25, 2019IMPRESSION:Single view of the skull, single view of the neck, single view of the chest, 2 views of the abdomen.Right frontal approach WINDOW REPAIRER shunt intact without discontinuity or kinking. The shunt courses on the right side of the head, neck, chest, abdomen with tip at the level of the pelvis.No acute osseous or soft tissue abnormality. No consolidation, pleural effusion, or pneumothorax. No bowel distention or free air. Large amount of stool present in the colon. Visualized bones without acute abnormality.[id number] [id number] XR Cervical 2019-04-02 [facility][1], [place] Spine 1 Vw 5 Radiology Results Methodi 12:54:22 - 04/25/2019 12:57 PM CDTStudy:XR CERVICAL SPINE 1 VW, XR CHEST 1 VW, XR ABDOMEN 1 VW, XR SKULL 4 VWHistory:headache shut evalCOMPARISON:March 25, 2019IMPRESSION:Single view of the skull, single view of the neck, single view of the chest, 2 views of the abdomen.Right frontal approach WINDOW REPAIRER shunt intact without discontinuity or kinking. The shunt courses on the right side of the head, neck, chest, abdomen with tip at the level of the pelvis.No acute osseous or soft tissue abnormality. No consolidation, pleural effusion, or pneumothorax. No bowel distention or free air. Large amount of stool present in the colon. Visualized bones without acute abnormality.[id number]-[id number] CT Head Wo 2019-04-02 [facility] 5 Radiology Results Methodi 12:08:45 - 04/25/2019 12:11 PM CDTEXAMINATION: CT HEAD WO CONTRASTCLINICAL HISTORY: headache hx [employer] marketing services and skin shuntCOMPARISON: CT brain from April 13, 2019.TECHNIQUE: Noncontrast enhanced images of the brain were obtained from the skull base to the vertex. Both soft tissue and bone reconstruction algorithms were performed. CT scans are performed using radiation dose reduction techniques. Technical factors are evaluated and adjusted to ensure appropriate moderation of exposure. Automated dose management technology is applied to adjust radiation exposure while achieving a diagnostic quality image.FINDINGS:Artifa cts obscure some details.There is a right frontal intraventricular shunt catheter which is relatively stable. There is relatively stable decreased density in the right frontal lobe around the catheter. There is no evidence of acute intracranial hemorrhage or mass, hydrocephalus or midline shift, stroke or thrombus in the vessels. The ventricles are small appearing. This is relatively stable. The sella is enlarged and partially empty.The orbits, sinuses and mastoid air cells do not show acute abnormality. There is mild mucosal thickening in the left ethmoid sinus which is stable. The nasal septum is deviated. There is nonspecific increased bone density.IMPRESSION:No significant changes in the brain or extra axial region compared to prior exam. The ventricles are small. This is stable however.Nonspecific enlarged partially empty sella.Nonspecific mild mucosal thickening in the left ethmoid sinus[id number] Basic metabolic panel 2019-04-25 12:05:02 Test Item Value Reference Range Interpretation Comme nts Sodium (test code = 2951-2) 141 135- 148 mEq/L Potassium (test code = 2823-3) 4.2 3.5- 5.0 mEq/L Chloride (test code = 2075-0) 107 98- 112 mEq/L CO2 (test code = 8-9) 23 24- 31 mEq/L L Anion gap (test code = 94243-6) 11@ANIO 7- 15 mEq/L BUN (test code = 3094-0) 10 mg/dL 6-20 Creatinine (test code = 2160-0) 0.70 mg/dL 0.5-0.9 Glucose (test code = 2345-7) 108 mg/dL 65-99 H Calcium (test code = 09601-8) 9.5 mg/dL 8.3-10.2 Lab Interpretation (test code = 96686-2) Abnormal Baldo MethodistEstimated [id number] 12:05:02 Test Item Value Reference Range Interpretation Comments Estimated GFR (test >=90 mL/min/1.73 m2 [facility] or Units code = 5488) InterpretationG 1 >=90 Normal or highG2 60-89 Mildly addhsdfmmR8n 45-59 Mildly to mode rately haubyeoxkB1o 30-44 Moderately to severely decreasedG4 15-29 Severely decre asedG5 <15 Kidn ey failureThe eGFR was calculated debbi pleitez the Chronic Kidney Disease Epidemiology Co llaboration (CKD-EPI) equat ion. Interpretation is based on recommendations of the National Kidney Foundation-Kidn ey Disease Outcomes Qualit y Initiative (NKF-KDOQI) pub lished in 2014. [facility] with platelet and [id number] 11:49:30 Test Item Value Reference Range Interpretation Comments WBC (test code = 32164-6) 11.49 4.50- 11.00 k/uL H RBC (test code = 42955-3) 4.32 m/uL 4.2-5.5 HGB (test code = 718-7) 12.4 g/dL 12-16 HCT (test code = 4544-3) 37.9 % 37-47 MCV (test code = 787-2) 87.7 fL 82-100 MCH (test code = 785-6) 28.7 pg 27-34 MCHC (test code = 786-4) 32.7 g/dL 31-37 RDW - SD (test code = 20113-3) 46.5 fL 37-55 MPV (test code = 57523-0) 10.7 fL 8.8-13.2 Platelet count (test code = 316 150- 400 k/uL 76083-8) Nucleated RBC (test code = 0.00 /100 WBC 50378-0) Neutrophils (test code = 86563-9) 60.8 % 39-69 Lymphocytes (test code = 82468-0) 31.2 % 25-45 Monocytes (test code = 41515-1) 5.1 % 0-10 Eosinophils (test code = 83445-0) 1.8 % 0-5 Basophils (test code = 03319-3) 0.5 % 0-1 Lab Interpretation (test code = Abnormal 72675-4) [facility] [id number] 21:57:33 Test Item Value Reference Range Interpretation Comments Ventricular rate (test 93 code = 253) Atrial rate (test code 93 = 255) [place] interval (test code 132 = 266) QRSD interval (test 86 code = 260) QT interval (test code 368 = 264) QTC interval (test code 457 = 265) P axis 1 (test code = 48 267) QRS axis 1 (test code = 24 268) T wave axis (test code 52 = 270) EKG impression (test Normal sinus code = 273) rhythm-Normal ECG-In automated comparison with ECG of 25-MAR-2019 18:28,-No significant change was found- [facility] MethodistCSF [id number] 16:08:13 Test Item Value Reference Range Interpretation Comments CSF culture No growth Specimen isolate (test after 72 InformationSpe cimen code = 606-4) hours Source: CSF (S herman Fluid)Specimen Site: No tube number not ed [place] MethodistGram [id number] 16:08:13 Test Item Value Reference Range Interpretation Comments Gram stain No WBC's or Specimen isolate (test organisms seen. Information Specimen code = 1469) Source: CSF (Sp inal Fluid)Specimen Site: No tube number not ed [place] MethodistNM Tc 99M Csf Shunt [id number] 14:11:38Hm Interface, Radiology Results Incoming - 04/16/2019 2:14 PM CDTPROCEDURE: NM TC 99M CSF SHUNT PATENCYINDICATION: Evaluate WINDOW REPAIRER shunt patency. TECHNIQUE: The patient was injected with 1 mCi of Tc-99m DTPA into the WINDOW REPAIRER shunt reservoir by a equal opportunity representative from the Neurosurgery service. Tracer was sterilized by filtration through a 0.2 micron inline filter. Planar dynamic images of the shunt were obtained. FINDINGS: Tracer migration through the right WINDOW REPAIRER shunt is normal. Activity is seen within thedistal tubing by 10 minutes with subsequent normal mixing of tracer with peritoneal fluid. IMPRESSION: 1. Normally functioning WINDOW REPAIRER shunt.[facility]-[id number] MethodistXR Chest 1 Portable 2019-04-16 05:01:17Hm Interface, Radiology Results Incoming - 04/16/2019 5:04 AM CDTEXAMINATION: XR CHEST 1 PORTABLECLINICAL HISTORY: shunt catheter movement COMPARISON: 04/13/2019IMPRESSION:Right-sided ventriculoperitoneal shunt catheter is intact, without kink or fracture.Chronic appearing interstitial lung markings. No consolidations, effusions, or pneumothorax.Cardiac silhouette is upper normal.No acute osseous abnormalities.[facility]-[id number] Taoist Phosphorus [id number] 03:06:37 Test Item Value Reference Range Interpretation Comments Phosphorus (test code = 2777-1) 2.7 mg/dL 2.4-4.5 Baldo MethodistIR Lumbar Puncture by [id number] 16:18:25Hm Interface, Radiology Results 04/14/2019 4:21 PM CDTEXAMINATION: IR LUMBAR PUNCTURECLINICAL HISTORY: recent WINDOW REPAIRER shunt revision HACOMPARISON: None.Findings:Informed consent was obtained. Lower back was prepped and draped in usual sterile fashion. 1% lidocaine was used for local anesthesia. A 22-gauge 3.5 inch needle was advanced into spinal canal at the L4-L5 level under intermittent fluoroscopic guidance. Opening pressure was 22 cm of water13 cc of clear CSF fluid was withdrawn. No complications.Total fluoroscopic time was 1 minute with 18 seconds. Total air kerma was 37 mGy.IMPRESSION:Successful fluoroscopic guided lumbar puncture.[facility]-[id number] MethodistGlucose level, [id number] 16:05:30 Test Item Value Reference Range Interpretation Comments Glucose, CSF (test code = 2342-4) 62 mg/dL 40-70 [place] MethodistProtein, [id number] 16:05:30 Test Item Value Reference Range Interpretation Comments Protein, CSF (test code = 2880-3) 42 mg/dL 15-45 [place] MethodistCSF cell count with [id number] 15:52:39 Test Item Value Reference Range Interpretation Comments Color, CSF (test code = 30618-7) Colorless Appearance, CSF (test code = Clear 57801-9) RBC, CSF (test code = 96783-6) 8 0- 1 /CMM H WBC, CSF (test code = 59936-5) 2 0- 5 /CMM CSF mononuclear cell (test code = 2/CMM 85899-4) Lab Interpretation (test code = Abnormal 54909-2) Baldo ChinghCG qualitative, urine [id number] 00:18:31 Test Item Value Reference Range Interpretation Comments hCG qualitative, Negative Sensitivity of HCG test: urine (test code = 25 mIU/mL 2106-3) Baldo ChingComprehensive metabolic [id number] 21:03:44 Test Item Value Reference Range Interpretation Comments Sodium (test code = 146 135- 148 mEq/L 2951-2) Potassium (test code = 4.2 3.5- 5.0 mEq/L 2823-3) Chloride (test code = 106 98- 112 mEq/L 2075-0) CO2 (test code = 2027-9) 25 24- 31 mEq/L Anion gap (test code = 15@ANIO 7- 15 mEq/L 14611-8) BUN (test code = 3094-0) 8 mg/dL 6-20 Creatinine (test code = 0.93 mg/dL 0.5-0.9 H 2160-0) Glucose (test code = 123 mg/dL 65-99 H 2345-7) Calcium (test code = 9.5 mg/dL 8.3-10.2 75795-4) Protein (test code = 7.8 g/dL 6.3-8.3 [place] 2885-2) 4.6-7.0 g/dL 1 week 4.4-7.6 g/dL7 months-1year 5.1-7.3 g/dL 1-2 years 5.6-7.5 g/dL>3 years 6.0-8.0 g/dL18- 150 6.3-8.3 g/dL Albumin (test code = 3.5 g/dL 3.5-5 1751-7) A/G ratio (test code = 0.8 0.7-3.8 1759-0) Alkaline phosphatase 66 U/L 35-104 (test code = 6768-6) AST (test code = 1920-8) 17 U/L 10-35 ALT (test code = 1742-6) 17 U/L 5-50 Total bilirubin (test 0.3 mg/dL 0-1.2 code = 1975-2) Lab Interpretation (test Abnormal code = 56793-7) [place] MethodzainabXR Abdomen Ap And [id number] 20:56:13Hm Interface, Radiology Results 04/13/2019 8:59 PM CDTEXAMINATION: XR ABDOMEN AP AND LATERALCLINICAL HISTORY: Breakdown (mechanical) of surgically created arteriovenous shuntCOMPARISON: 03/25/2019.FINDINGS:A right side WINDOW REPAIRER shunt with the tip now within the region of the mid pelvis. There is no evidence of kinking or fracture of the visualized WINDOW REPAIRER shunt along the abdomen. The bowel gas pattern is nonspecific. No radiopaque calcifications are identified. The lung bases are clear. Regional skeletal structures are within normal limits.IMPRESSION:Right WINDOW REPAIRER shunt along the right side of the abdomen remains intact without evidence of kinking or fracture.[id number] MethodistXR Chest 2 [id number] 20:53:21Hm Interface, Radiology Results Incoming 04/13/2019 8:56 PM CDTExamination: XR CHEST 2 VWClinical History: Fatigue and malaiseComparison: 03/25/2019.Technique: Frontal and lateral views of the chestwere obtained.Findings:Lungs and pleural surfaces are clear. Cardiomediastinal silhouette and pulmonary vascularity are within normal limits. Bones are intact.WINDOW REPAIRER shunt courses over the right chest.Impression:No active cardiopulmonary disease identified.[facility]-[id number] MethodistXR Cervical Spine 2 Or 3 [id number] 20:49:41Hm Interface, Radiology Results Incoming 04/13/2019 8:52 PM CDTEXAMINATION: XR CERVICAL SPINE 2 OR 3 VWCLINICAL HISTORY: Neck pain initial examCOMPARISON: 03/25/2019.IMPRESSION:2 views provided.Radi odense portions of the radiodense tubing appear intact as it traverses the right neck at chest wall soft tissues.C1-C7 vertebrae visualized.The alignment is within normal limits. No subluxation.Vertebral body and intervertebral disc heights are preserved.No prevertebral soft tissue swelling.Tongue piercing noted.[facility]-[id number] Methodist
--- OUTSIDE RECORDS SUMMARY | 2020-04-10 10:11 | XMS REPORT | Continuity of Care Document ---
:1980 Author Organization [facility] Address [address] [place] [address] Care Team Providers Name Role Phone PHYSICIAN Primary Care Physician Unavailable Allergies, Adverse Reactions, Alerts Allergen Type Severity Reaction Last Verified Status Updated Aspirin Allergy Unknown January 16, No Active ([id number]) 2019 Morphine Allergy Unknown January 16, No Active ([id number]) 2020 Vancomycin Allergy Unknown January 16, No Active ([id number]) 2020 Latex Allergy Unknown January 16, No Active ([id number]) 2019 Medications Medication Status Dose Units Route Sig Qty Days Start End Instruct ions Date Date Cephalexin * Active 1 ORAL Twice A Day 14 7 December for , Infection 2019 4:05pm Problems No problem information available. Procedures Procedure Date Performed Status Computed tomography of head January 17, 2020 completed without contrast Computed tomography of abdomen January 17, 2020 completed and pelvis with contrast Relevant Diagnostic Tests and/or Laboratory Data Laboratory Results Test Date/Time Result Interpretation Reference Result Perfo rming Range Comment Site White Blood Count January 16, 13.7 4.0-11.5 M [facility], [address] [place] [address] 1:40pm Red Blood Count January 16, 4.69 3.80-5.20 [facility], [address] X [address] 1:40pm Hemoglobin January 16, 13.3 10.5-15.7 [facility], [address] X [address] 1:40pm Hematocrit January 16, 40.7 34.0-50.0 [facility], [address] X [address] 1:40pm Mean Corpuscular January 16, 86.8 86-100 [facility], [address] X [address] 1:40pm Mean Corpuscular January 16, 28.4 26.2-33.4 MR , [address] [facility] Hemoglobin 2019 [facility] [address] 1:40pm Mean Corpuscular January 16, 32.7 30-34 [facility], [address] Hemoglobin Concent 2019 [place] [address] 1:40pm Red Cell January 16, 14.7 12.0-15.5 [facility], [address] [facility] Distribution Width 2019 [place] [address] 1:40pm Platelet Count January 16, 343 165-450 [facility] , [address] [place] [address] X [address] 1:40pm Mean Platelet January 16, 10.9 9.4-12.6 [facility], [address] [facility] Volume 2019 [facility] X [address] 1:40pm Neutrophils (%) January 16, 63.6 44.4-80.1 [facility], [address] [facility] (Auto) [address] [place] [address] X [address] 1:40pm Immature January 16, 0.4 0.0-0.4 [facility], [address] [facility] Granulocyte % 2019 [facility] [place] [address] (Auto) 1:40pm Lymphocytes (%) January 16, 29.6 10.0-50.0 [facility], [address] [facility] (Auto) [address] [place] [address] X [address] 1:40pm Monocytes (%) January 16, 4.2 3.6-12.0 [facility], [address] [facility] (Auto) [address] [place] [address] X [address] 1:40pm Eosinophils (%) January 16, 1.6 0.0-5.4 [facility], [address] [facility] (Auto) [address] [place] [address] X [address] 1:40pm Basophils (%) January 16, 0.6 0.1-1.2 [facility], [address] [facility] (Auto) [address] [place] [address] X [address] 1:40pm Neutrophils # January 16, 8.72 1.56-6.13 [facility], [address] [facility] (Auto) [address] [place] [address] X [address] 1:40pm Absolute Immature January 16, 0.1 0.0-0.03 M [facility], [address] [facility] Granulocyte (auto 2020 [place] [address] 1:40pm Lymphocytes # January 16, 4.1 1.18-3.74 [facility], [address] [facility] (Auto) [address] [place] [address] X [address] 1:40pm Monocytes # (Auto) January 16, 0.58 0.24-0.86 [facility], [address] [facility] 2020 [facility] X [address] 1:40pm Eosinophils # January 16, 0.22 0.04-0.36 [facility], [address] [facility] (Auto) 2019 [facility] X [address]758 1:40pm Basophils # (Auto) January 16, 0.08 0.01-0.08 [facility], [address] [place] [address] X [address] 1:40pm Nucleated Red January 16, 0 0-0.2 [facility], [address] [facility] Blood Cells % 2019 [facility] [address] 1:40pm Nucleated Red January 16, 0 0 [facility], [address] [facility] Blood Cells # 2019 [facility] [address] 1:40pm Prothrombin Time January 16, 10.6 10.3-12.3 THERAPEUTIC [facility], [address] [facility] 2019 LEVEL: 1.5 [facility] [address] 1:40pm to 1.9 times normal range of PT Prothromb Time January 16, 0.98 Recommended [address] , [address] [facility] International 2019 therapeutic [facility] [address] Ratio 1:40pm range for patients receiving warfarin (coumadin) therapy: INR is 2.0 to 3.0Recommend ed range for patients with mechanical prosthetic heart valves: INR is 2.5 to 3.5 Activated Partial January 16, 29.7 22.5-37.0 M [facility], [address] [facility] Thromboplast Time 2019 [facility] [address] 1:40pm Urine Color January 16, YELLOW [facility], [address] X [address] 2:55pm Urine Appearance January 16, SL CLOUDY CLEAR MR , [address] [place] [address] X [address] 2:55pm Urine Glucose (UA) January 16, NEGATIVE NEGATIVE [facility], [address] [place] [address] X [address] 2:55pm Urine Bilirubin January 16, NEGATIVE NEGATIVE [facility], [address] [place] [address] X [address] 2:55pm Urine Ketones January 16, NEGATIVE NEGATIVE [facility], [address] [place] [address] X [address] 2:55pm Urine Specific January 16, 1.022 1.003-1.03 [facility], [address] [place] 2020 0 [facility] X [address] 2:55pm Urine Blood January 16, 1+ NEGATIVE [facility], 1 04 2019 (SMALL) [facility] X [address] 2:55pm Urine pH January 16, 6.500 5-9 [facility], [address] X [address] 2:55pm Urine Protein January 16, TRACE NEGATIVE [facility], [address] X [address] 2:55pm Urine Urobilinogen January 16, 2.0-3.0 0.2-1.0 [facility], [address] X [address] 2:55pm Urine Nitrate January 16, NEGATIVE NEGATIVE [facility], [address] X [address] 2:55pm Urine Leukocyte January 16, NEGATIVE NEGATIVE [facility], [address] X [address] 2:55pm Urine RBC January 16, 11-14 0-5 [facility], 104 2019 [facility] X [address] 2:55pm Urine WBC January 16, 6-10 0-5 [facility], [address] X [address] 2:55pm Urine Epithelial January 16, 11-14 0-5 MR , 104 [facility] 2019 [facility] X [address] 2:55pm Urine Bacteria January 16, MODERATE None [facility] , 104 2019 (2+) Detect [facility] X [address] 2:55pm Urine Casts January 16, 6-10 None [facility], 1 04 2019 Detect [facility] X [address] 2:55pm Urine Culture January 16, YES [facility], [address] [place] [address] X [address] 2:55pm Random Glucose January 16, 173 74-106 [facility] , [address] X [address] 1:40pm Blood Urea January 16, 11 6-20 [facility], [address] [place] [address] X [address] 1:40pm Serum Osmolality January 16, 285 280-300 MR , [address] [facility] 2019 [facility] X [address] 1:40pm Creatinine January 16, 0.7 0.50-0.90 [facility], 10 4 2019 [facility] X [address] 1:40pm Glomerular January 16, > 60.00 GFR RESULTS [facility], [address] [facility] Filtration Rate 2020 ARE REPORTED B [facility] [place] [address] Calc 1:40pm IN mL/min/1.73m 2.Normal GFR: >60mL/minMod erately decreased GFR: 30-59 mL/minSevere ly decreased GFR: 15-29 mL/minKidney Failure (or Dialysis): <15 mL/minThe calculated eGFR is not valid for patients younger than 18 years or older than 75 years. BUN/Creatinine January 16, 15.7 12-20 [facility] , [address] [facility] Ratio [address] [place] [address] X [address] 1:40pm Sodium Level January 16, 141 135-145 [facility], [address] [place] [address] X [address] 1:40pm Potassium Level January 16, 3.9 3.5-5.2 [facility], [address] [place] [address] X [address] 1:40pm Chloride Level January 16, 105 98-108 [facility] , [address] [place] [address] X [address] 1:40pm Carbon Dioxide January 16, 23 21-32 [facility] , [address] [place] [address] X [address] 1:40pm Anion Gap January 16, 16.9 12- [facility], [address] [place] [address] X [address] 1:40pm Calcium Level January 16, 9.3 8.6-10.0 [facility], [address] [place] [address] X [address] 1:40pm Total Protein January 16, 7.5 6.6-8.7 [facility], [address] [place] [address] X [address] 1:40pm Albumin January 16, 4.0 3.5-5.2 [facility], [address] [place] [address] X [address] 1:40pm Globulin January 16, 3.5 [facility], [address] [place] [address] X [address] 1:40pm Albumin/Globulin January 16, 1.1 >1.0 [facility], [address] [place] [address] X [address] 1:40pm Total Bilirubin January 16, < 0.3 0.0-1.2 [facility], [address] [place] [address] X [address] 1:40pm Aspartate Amino January 16, 18 15-32 [facility], [address] Transf (AST/SGOT) 2019 [facility] [address] 1:40pm Alanine January 16 0-33 [facility], [address] Aminotransferase 2019 [facility] [address] (ALT/SGPT) 1:40pm Lipase January 16 13-60 [facility], [address] [place] [address] 1:40pm Total Alkaline January 16 35-105 [facility] , [address] Phosphatase 2019 [facility] [address]805 1:40pm Health Concerns Health Concerns may be documented in an alternate section. Advance Directives Advance Directive Response Recorded Date/Time Advance Directive on File No January 16 0 1:18pm Chief Complaint and Reason for Visit Chief Complaint Headache Reason for Visit [id number] Encounters Encounter Location(s) Arrival/Admit Date Discharge/Depart Date Provider(s) Departed [place] January 17, 2020 January 17, 2020 JUAN C MILIAN MD [facility] 1:01pm 5:01pm Ctr Assessments No Assessments Information Available Functional Status No Functional Status information available Goals Goals may be documented in an alternate section. Immunizations No Immunization Information Available Mental Status No Mental Status Information Available Medical Equipment No Medical Equipment Information available Insurance Providers Guarantor Meron Keith Address [address] [address] Contact Info. Home Phone: Payer Policy Id Coverage Id Subscriber's Subscriber Id Effective E xpiration Name Date Date Medicaid [id number] Meron Keith [id number] L Plan of Treatment DRINK PLENTY OF FLUIDS USE TYLENOL AND OR MOTRIN DIRECTED FOR PAIN TAKE ALL MEDICATIONS PRESCRIBED RETURN TO THE ER IF YOUR SYMPTOMS WORSEN Future Tests Future scheduled test information is unavailable Pending Tests Test Name Date ordered Urine Culture January 17, 2020 2:55pm Future Visits Future appointment information is unavailable Referrals to Other Providers Reason for Referral Start Provider Provider Contact Provider Address Referral Date Information PHYSICIAN, NO Future Procedures Future procedure information is unavailable Future Medications Future medication information is unavailable Patient Instructions Urinary Tract Infection, Adult Abdominal Pain, Adult Migraine Headache Social History Smoking Status Status Date of Observation Smokes tobacco daily (finding) January 17, 2020 1:18pm Assigned Sex Female Vital Signs Vital Reading Result Collection Date/Time Weight 210 [lb_av] January 17, 2020 1:18 pm BMI (Body Mass Index) 37.2 kg/m2 January 17, 2020 1: 18pm
[2020-04-10] MEDS ORDERED: HYDROMORPHONE HCL 2 MG/ML inj ONE (10:36)
[2020-04-10] MEDS ORDERED: ONDANSETRON 4 MG/2 ML VIAL ONE ×3 (10:36→22:01)
[2020-04-10 10:45] LABS: Absolute Lymphocytes (CBC) 3.1 K/uL (0.7-4.9); Basophils % 1.1 % (0-1.3); Hematocrit 39.5 % (36.0-45.0); Lymphocytes % 24.6 % (15.3-44.8); MPV 8.9 fL (7.6-11.3); RBC Red Blood Cell Count 4.72 M/uL (3.86-4.86)
[2020-04-10 10:46] LABS: Protime INR 1.22
[2020-04-10 11:03] LABS: ALT/SGPT 27 U/L (12-78); AST/SGOT 10 U/L (15-37); Albumin 3.3 g/dL (3.4-5.0); Alkaline Phosphatase 68 U/L (45-117); BUN Blood Urea Nitrogen 10 mg/dL (7-18); Bicarbonate 25 mmol/L (21-32); Bilirubin Direct 0.1 mg/dL (0-0.2); Bilirubin Total 0.3 mg/dL (0.2-1.0); Glucose Level 93 mg/dL (74-106); Lipase 61 U/L (73-393); Magnesium 2.2 mg/dL (1.8-2.4); NT PRO-BNP 228 pg/mL (<125); Potassium 3.9 mmol/L (3.5-5.1); Protein, Total 7.5 g/dL (6.4-8.2); Sodium Level 143 mmol/L (136-145); Troponin (Emerg Dept Use Only) < 0.02 ng/mL (0.0-0.045)
--- NOTE | 2020-04-10 11:07 | RAD REPORT ---
EXAM DESCRIPTION: CT - Abdomen Pelvis W Contrast - 04/10/2020 10:52 am CLINICAL HISTORY: Abdominal pain COMPARISON: 2007 TECHNIQUE: Computed axial tomography of the abdomen pelvis was obtained. 100 cc Isovue-300 was admin istered intravenously. Oral contrast was not requested which limits evaluation of bowel. All CT scans are performed using dose optimization technique as appropriate and may include automated exposure control or mA/KV adjustment according to patient size. FINDINGS: Fatty liver Spleen, pancreas, adrenal and kidneys appear unremarkable. There is no evidence of diverticulitis. Normal appendix Tip of a TRIM SETTER shunt lies anterior to the liver within the upper abdomen. Calcified granuloma right lowe r lobe. Small amount of free fluid. IMPRESSION: Small amount of free fluid likely not significant Fatty liver
--- NOTE | 2020-04-10 11:49 | RAD REPORT ---
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 The shunt makes an approximately 90 degrees angle within the lower right abdomen
[2020-04-10] MEDS ORDERED: HYDROMORPHONE HCL 1 MG/ML INJ ONE ×4 (13:47→21:56)
[2020-04-10] MEDS ORDERED: PROMETHAZINE INJ 25 MG/ML AMP ONE (17:14)
[2020-04-10] MEDS ORDERED: HYDROMORPHONE HCL 0.5 MG/0.5 ML INJ ONE ×2 (17:14→19:26)
--- NOTE | 2020-04-10 19:15 | ER ---
Nurse's Notes [facility] Name: Meron Gagnon Age: 39 yrs Sex: Female : 1980 Arrival Date: 04/10/2020 Time: 10:12 Bed 3 Private MD: Diagnosis: Headache;FORENSIC PATHOLOGIST Shunt Malfunction Presentation: 04/10 10:12 Chief complaint: EMS states: RUQ and head pressure that began 2 weeks ago and got worse aa5 today. Pt reports hx of FORENSIC PATHOLOGIST shunt and had it revised last year. EMS reports giving 100mcg Fentanyl, 22 G to R Hand. Coronavirus screen: Client denies travel out of the [place] in the last 14 days. At this time, the client does not indicate any symptoms associated with coronavirus-19. Ebola Screen: Patient negative for fever greater than or equal to 101.5 degrees Fahrenheit, and additional compatible Ebola Virus Disease symptoms. Initial Sepsis Screen: Does the patient meet any 2 criteria? RR > 20 per min. HR > 90 bpm. Yes Does the patient have a suspected source of infection? No. Patient's initial sepsis screen is negative. Risk Assessment: Do you want to hurt yourself or someone else? Patient reports no desire to harm self or others. Onset of symptoms was 2020. 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 - Social history:: Smoking status: unknown. Screenin:15 Abuse screen: Denies threats or abuse. Nutritional screening: No deficits noted. aa5 Tuberculosis screening: No symptoms or risk factors identified. Fall Risk None identified. Assessment: 10:15 General: Appears uncomfortable, Behavior is calm, cooperative. Pain: Complains of pain aa5 in right upper quadrant and head Pain does not radiate. Pain currently is 10 out of 10 on a pain scale. Quality of pain is described as head as pressure and abdomen as sharp pain Pain began 2 weeks ago and got worse today Is continuous. 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 Speech is normal, Facial symmetry appears normal, Pupils are PERRLA, Reports headache Denies blurred vision. Cardiovascular: Heart tones S1 S2 present Rhythm is regular. Respiratory: Airway is patent Respiratory effort is even, unlabored, Respiratory pattern is regular, symmetrical. GI: Abdomen is round Bowel sounds present X 4 quads. Abdomen is tender to palpation in epigastric area, right upper quadrant and left upper quadrant Reports nausea. : No signs and/or symptoms were reported regarding the genitourinary system. EENT: No signs and/or symptoms were reported regarding the EENT system. Derm: Skin is pink, warm \\T\\ dry. Psoriasis noted to sheila arms. Musculoskeletal: Range of motion: intact in all extremities. 11:00 Reassessment: Pt currently at radiology. aa5 11:42 Reassessment: Pt remains at radiology. . aa5 11:55 Reassessment: Patient is alert, oriented x 3, equal unlabored respirations, skin aa5 warm/dry/pink. Patient states feeling better. Patient states symptoms have improved. Pt back from CT . 12:30 Reassessment: Patient is alert, oriented x 3, equal unlabored respirations, skin aa5 warm/dry/pink. Pt requesting medications for nausea and pain, PA was notified. PA now at bedside speaking to pt about POC. . 13:20 Reassessment: Patient is alert, oriented x 3, equal unlabored respirations, skin aa5 warm/dry/pink. Pt requesting medications for pain and nausea, PA was notified. . 13:20 Reassessment: Awaiting approval for transfer to [facility], pt notified of wait time. . aa5 14:54 Reassessment: Pt gave me $60 in [place]ers to give to her Drew out in the ER lobby, aa5 $60 given to pt's witnessed by Brielle Mistry, ER paralegal secretary. . 14:54 Reassessment: Patient is alert, oriented x 3, equal unlabored respirations, skin aa5 warm/dry/pink. 14:59 Reassessment: Rash that is petechiae noted to left hand, pt denies itching to site. JATIN aa5 notified. . 16:40 Reassessment: Pt assisted to bedside commode, pt voided without difficulty or aa5 complaints. . 16:50 Reassessment: Patient is alert, oriented x 3, equal unlabored respirations, skin aa5 warm/dry/pink. PA notified of increased BP and increased pain at this time. . 17:15 Reassessment: Patient is alert, oriented x 3, equal unlabored respirations, skin aa5 warm/dry/pink. 17:15 Reassessment: Still awaiting approval for transfer to [facility]. . aa5 18:10 Reassessment: Respirations even and unlabored, skin is pink/war/dry. Pt lying down in aa5 bed, appears comfortable. . 19:26 General: Appears uncomfortable, Behavior is appropriate for age. Pain: Complains of ea pain in left upper quadrant and right upper quadrant. Neuro: Level of Consciousness is awake, alert, obeys commands, Oriented to person, place, time, situation. Cardiovascular: Patient's skin is warm and dry. Respiratory: Airway is patent Respiratory effort is even, unlabored, Respiratory pattern is regular, symmetrical. GI: Abdomen is round. Derm: Skin is pink, warm \\T\\ dry. Musculoskeletal: Circulation, motion, and sensation intact. 21:26 Reassessment: PATIENT IS COMPLAINING OF SIDE PAIN AND HEADACHE. VITAL SIGNS RECHECKED. rv REFERRED TO JATIN KIMBLE. 22:00 Reassessment: Patient and/or family updated on plan of care and expected duration. Pain ea level reassessed. Patient is alert, oriented x 3, equal unlabored respirations, skin warm/dry/pink. 23:41 Reassessment: Patient and/or family updated on plan of care and expected duration. Pain ea level reassessed. Patient is alert, oriented x 3, equal unlabored respirations, skin warm/dry/pink. Pt reports pain has decreased a little. 04/11 00:30 Reassessment: Patient and/or family updated on plan of care and expected duration. Pain ea level reassessed. Patient is alert, oriented x 3, equal unlabored respirations, skin warm/dry/pink. Awaiting on facility approval. 01:50 Reassessment: Patient and/or family updated on plan of care and expected duration. Pain ea level reassessed. Patient is alert, oriented x 3, equal unlabored respirations, skin warm/dry/pink. Awaiting on facility approval. 02:38 Reassessment: Patient and/or family updated on plan of care and expected duration. Pain ea level reassessed. Patient is alert, oriented x 3, equal unlabored respirations, skin warm/dry/pink. [facility] at facility for transport. Pt left ED via stretcher per EMS. Pt tolerating well. Vital Signs: 04/10 10:12 BP 180 / 131; Pulse 118; Resp 24; Temp 99.0(O); Pulse Ox 100% on R/A; Pain 05/10; aa5 11:55 BP 178 / 96; Pulse 73; Resp 20; Pulse Ox 95% ; rb1 12:45 BP 172 / 98; Pulse 73; Resp 18 S; Temp 98.2(O); Pulse Ox 98% on R/A; aa5 13:30 BP 181 / 98; Pulse 97; Resp 13; Pulse Ox 98% ; jl7 14:30 BP 177 / 93; Pulse 72; Resp 16 S; Pulse Ox 100% on R/A; aa5 16:45 BP 222 / 121; Pulse 111; Resp 20 S; Pulse Ox 100% on R/A; aa5 17:00 BP 200 / 106; Pulse 79; Resp 18 S; Temp 98.0(TE); Pulse Ox 96% on R/A; aa5 18:15 BP 186 / 102; Pulse 75; Resp 16 S; Pulse Ox 99% on R/A; aa5 19:37 BP 177 / 93; Pulse 77; Resp 16; Pulse Ox 97% ; ea 20:06 BP 171 / 93; Pulse 85; Resp 16; Pulse Ox 95% on R/A; ea 21:55 BP 182 / 91; Pulse 93; Resp 18; Pulse Ox 98% ; ea 22:23 BP 185 / 100; Pulse 87; Resp 16; Pulse Ox 98% on R/A; ea 23:08 BP 183 / 95; Pulse 86; Resp 18; Pulse Ox 98% on R/A; ea 23:17 BP 164 / 100; Pulse 82; Resp 16; Pulse Ox 99% ; ea 04/11 00:18 BP 167 / 98; Pulse 79; Resp 18; Pulse Ox 95% ; ea 00:42 BP 157 / 98; Pulse 85; Resp 16; Pulse Ox 95% ; ea 01:55 BP 157 / 91; Pulse 88; Resp 16; Temp 97.8; Pulse Ox 97% ; ea 02:15 BP 156 / 90; Pulse 80; Resp 17; Pulse Ox 98% on R/A; ea ED Course: 04/10 10:12 Patient arrived in ED. aa5 10:12 Arm band placed on Patient placed in an exam room, on a stretcher. aa5 10:12 Patient has correct armband on for positive identification. Bed in low position. Call aa5 light in reach. Side rails up X2. 10:14 Triage completed. aa5 10:16 Susie Rey, RN is Primary Nurse. aa5 10:16 Willy Bhat PA is PHCP. jr8 10:16 Steven Hill MD is Attending Physician. jr8 10:26 Maintain EMS IV. Dressing intact. Site clean \\T\\ dry. Gauge \\T\\ site: 22 G to R Hand. aa 5 10:30 Initial lab(s) drawn, by me, sent to lab. Inserted saline lock: 20 gauge in right aa5 antecubital area, using aseptic technique. Blood collected. 10:53 CT Abd/Pelvis - IV Contrast Only In Process Unspecified. EDMS 11:39 Shuntogram XRAY In Process Unspecified. EDMS 11:57 EKG done, by ED staff, reviewed by Steven Hill MD. aa5 12:54 T\\T\\S collected, blood band applied to patient. jl7 14:13 initiated transfer to [facility], talked to Misti, the computer system at [facility] is down and they are not able to assign any beds at this time. She will call back when the system is back up. 15:01 talked to Herson at [facility], system is still down. is expected to be bd back up around 1600. 16:20 talked to Misti at [facility], bed availability still being assessed, she bd will call back. 17:15 intact, bleeding controlled, No redness/swelling at site. Pressure dressing applied, 22 aa5 G to R hand d/c'd per pt's request, pt states "this IV just keeps bothering me". 18:58 PHCP role handed off by Willy Bhat PA [facility] 18:58 Kade Kimble PA is PHCP. [facility] 19:00 Report given to BREE Curry. aa5 19:36 No provider procedures requiring assistance completed. ea Administered Medications: 10:26 Drug: Dilaudid 2 mg Route: IVP; Site: right hand; aa5 10:35 Follow up: Response: No adverse reaction aa5 10:26 Drug: Zofran (Ondansetron) 4 mg Route: IVP; Site: right hand; aa5 10:35 Follow up: Response: No adverse reaction aa5 13:43 Drug: Dilaudid 1 mg Route: IVP; Site: right antecubital; aa5 13:50 Follow up: Response: No adverse reaction aa5 13:43 Drug: Zofran (Ondansetron) 4 mg Route: IVP; Site: right antecubital; aa5 13:50 Follow up: Response: No adverse reaction aa5 17:15 Drug: Phenergan 12.5 mg Route: IVP; Site: right antecubital; aa5 17:20 Follow up: Response: No adverse reaction aa5 17:15 Drug: Dilaudid 0.5 mg Route: IVP; Site: right antecubital; aa5 17:20 Follow up: Response: No adverse reaction aa5 19:23 Drug: Dilaudid 0.5 mg {Note: RASS 0.} Route: IVP; Site: right antecubital; ea 20:00 Follow up: Response: No adverse reaction; Pain is decreased ea 19:25 Drug: Labetalol 10 mg Route: IVP; Site: right antecubital; ea 19:38 Follow up: Response: No adverse reaction; Blood pressure is lowered ea 21:52 Drug: Zofran (Ondansetron) 4 mg Route: IVP; Site: right antecubital; ea 23:05 Follow up: Response: No adverse reaction; Nausea is decreased ea 21:58 Drug: Dilaudid 1 mg {Note: RASS 0.} Route: IVP; Site: right antecubital; ea 23:04 Follow up: Response: No adverse reaction; Pain is decreased; RASS: Alert and Calm (0) ea 22:00 Drug: hydrALAZINE 10 mg Route: IV; Rate: calculated rate; Site: right antecubital; ea 22:40 Follow up: Response: No adverse reaction; IV Status: Completed infusion ea 22:41 Drug: Lisinopril 20 mg Route: PO; ea 23:18 Follow up: Response: No adverse reaction; Blood pressure is lowered ea 23:04 Drug: Labetalol 20 mg Route: IVP; Infused Over: 2 mins; Site: right antecubital; ea 23:18 Follow up: Response: No adverse reaction; Blood pressure is lowered ea 23:28 Drug: cloNIDine 0.2 mg Route: PO; ea 23:42 Follow up: Response: No adverse reaction ea 04/11 01:24 Not Given (Hemodynamic Parameters): niCARdipine (25mg/250ml) 5 mg/hr IV at calculated ea rate continuous; Adjust 2.5 mg/hr every 10 minutes to keep SBP between 140 mmHg and 120 mmHg. Range 0 to 15 mg/hr. Wean to minimum required dose. 02:33 Drug: Dilaudid 1 mg Route: IVP; Site: right antecubital; ea 02:36 Follow up: Response: RASS: Alert and Calm (0); Medication adminsitered at transfer ea Outcome: 04/10 19:14 ER care complete, transfer ordered by MD. guadalupe 19:36 Instructed on the need for transfer, Demonstrated understanding of instructions. ea 04/11 02:37 Transferred by ground EMS to [facility], Transfer form completed. ea Condition: stable 02:39 Patient left the ED. ea Signatures: Dispatcher [employer] EDMS Brielle Mistry Joel, PA PA jmm Calderon, Audri RN BREE diamond5 Willy Bhat PA PA jr8 Barber, Rebecca, RN Vale Quiñones RN RN jl7 Antionette Zuniga RN RN ea Vicente, Ronaldo RN BREE rv Corrections: (The following items were deleted from the chart) 04/10 10:14 10:12 Initial Sepsis Screen: Does the patient meet any 2 criteria? No. Patient's aa5 initial sepsis screen is negative. Does the patient have a suspected source of infection? No. Patient's initial sepsis screen is negative. aa5 11:43 10:12 Acuity: DIXIE 3 aa5 aa5 18:09 10:15 Derm: Skin is pink, warm \\T\\ dry. aa5 aa5 19:39 19:23 Dilaudid 0.5 mg IVP in right antecubital ea ea
--- NOTE | 2020-04-10 19:15 | EDPHYS ---
Physician Documentation [facility] Name: Meron Gagnon Age: 39 yrs Sex: Female : 1980 Arrival Date: 04/10/2020 Time: 10:12 Bed 3 Private MD: ED Physician Steven Hill HPI: 04/10 11:39 This 39 yrs old Female presents to ER via EMS with complaints of Abdominal jr8 Pain, Headache. 11:39 The patient presents with abdominal pain in the right upper quadrant. Onset: The jr8 symptoms/episode began/occurred acutely, today. The symptoms do not radiate. Associated signs and symptoms: Pertinent positives: headache. The symptoms are described as shooting, stabbing. Modifying factors: The symptoms are alleviated by nothing, the symptoms are aggravated by movement. Severity of pain: At its worst the pain was moderate in the emergency department the pain is unchanged. The patient has not experienced similar symptoms in the past. The patient has not recently seen a physician. Patient stated that last time she had something similar to this she had shunt malfunction but that her abdominal pain this time is much worse. 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 - Social history:: Smoking status: unknown. ROS: 11:39 Eyes: Negative for injury, pain, redness, and discharge, ENT: Negative for injury, jr8 pain, and discharge, Neck: Negative for injury, pain, and swelling, Cardiovascular: Negative for chest pain, palpitations, and edema, Respiratory: Negative for shortness of breath, cough, wheezing, and pleuritic chest pain, Back: Negative for injury and pain, MS/Extremity: Negative for injury and deformity, Skin: Negative for injury, rash, and discoloration. 11:39 Abdomen/GI: Positive for abdominal pain, Negative for nausea, vomiting, and diarrhea, abdominal cramps, abdominal distension. 11:39 Neuro: Positive for headache. Exam: 11:39 Eyes: Pupils equal round and reactive to light, extra-ocular motions intact. Lids and jr8 lashes normal. Conjunctiva and sclera are non-icteric and not injected. Cornea within normal limits. Periorbital areas with no swelling, redness, or edema. ENT: Nares patent. No nasal discharge, no septal abnormalities noted. Tympanic membranes are normal and external auditory canals are clear. Oropharynx with no redness, swelling, or masses, exudates, or evidence of obstruction, uvula midline. Mucous membranes moist. Neck: Trachea midline, no thyromegaly or masses palpated, and no cervical lymphadenopathy. Supple, full range of motion without nuchal rigidity, or vertebral point tenderness. No Meningismus. Cardiovascular: Regular rate and rhythm with a normal S1 and S2. No gallops, murmurs, or rubs. Normal PMI, no JVD. No pulse deficits. Respiratory: Lungs have equal breath sounds bilaterally, clear to auscultation and percussion. No rales, rhonchi or wheezes noted. No increased work of breathing, no retractions or nasal flaring. Back: No spinal tenderness. No costovertebral tenderness. Full range of motion. Skin: Warm, dry with normal turgor. Normal color with no rashes, no lesions, and no evidence of cellulitis. MS/ Extremity: Pulses equal, no cyanosis. Neurovascular intact. Full, normal range of motion. Neuro: Awake and alert, GCS 15, oriented to person, place, time, and situation. Cranial nerves II-XII grossly intact. Motor strength 5/5 in all extremities. Sensory grossly intact. Cerebellar exam normal. Normal gait. 11:39 Abdomen/GI: Inspection: obese Bowel sounds: active, all quadrants, Palpation: soft, in all quadrants, moderate abdominal tenderness, in the epigastric area, right upper quadrant and left upper quadrant, mass, is not appreciated, rebound tenderness, is not appreciated, voluntary guarding, is not appreciated, involuntary guarding, is not appreciated, no appreciated organomegaly, Indicators: McBurney's point is not tender, Gamboa's sign is negative, Rovsing's sign is negative, Liver: tenderness, is not appreciated. Vital Signs: 10:12 BP 180 / 131; Pulse 118; Resp 24; Temp 99.0(O); Pulse Ox 100% on R/A; Pain 10/10; aa5 11:55 BP 178 / 96; Pulse 73; Resp 20; Pulse Ox 95% ; rb1 12:45 BP 172 / 98; Pulse 73; Resp 18 S; Temp 98.2(O); Pulse Ox 98% on R/A; aa5 13:30 BP 181 / 98; Pulse 97; Resp 13; Pulse Ox 98% ; jl7 14:30 BP 177 / 93; Pulse 72; Resp 16 S; Pulse Ox 100% on R/A; aa5 16:45 BP 222 / 121; Pulse 111; Resp 20 S; Pulse Ox 100% on R/A; aa5 17:00 BP 200 / 106; Pulse 79; Resp 18 S; Temp 98.0(TE); Pulse Ox 96% on R/A; aa5 18:15 BP 186 / 102; Pulse 75; Resp 16 S; Pulse Ox 99% on R/A; aa5 19:37 BP 177 / 93; Pulse 77; Resp 16; Pulse Ox 97% ; ea 20:06 BP 171 / 93; Pulse 85; Resp 16; Pulse Ox 95% on R/A; ea 21:55 BP 182 / 91; Pulse 93; Resp 18; Pulse Ox 98% ; ea 22:23 BP 185 / 100; Pulse 87; Resp 16; Pulse Ox 98% on R/A; ea 23:08 BP 183 / 95; Pulse 86; Resp 18; Pulse Ox 98% on R/A; ea 23:17 BP 164 / 100; Pulse 82; Resp 16; Pulse Ox 99% ; ea 04/11 00:18 BP 167 / 98; Pulse 79; Resp 18; Pulse Ox 95% ; ea 00:42 BP 157 / 98; Pulse 85; Resp 16; Pulse Ox 95% ; ea 01:55 BP 157 / 91; Pulse 88; Resp 16; Temp 97.8; Pulse Ox 97% ; ea 02:15 BP 156 / 90; Pulse 80; Resp 17; Pulse Ox 98% on R/A; ea MDM: 04/10 10:16 Patient medically screened. [facility] 15:00 Data reviewed: vital signs, nurses notes, lab test result(s), EKG, radiologic studies, jr8 CT scan, plain films. Data interpreted: Pulse oximetry: on room air is 98 %. Interpretation: normal. Counseling: I had a detailed discussion with the patient and/or guardian regarding: the historical points, exam findings, and any diagnostic results supporting the discharge/admit diagnosis, lab results, radiology results, the need to transfer to another facility, [facility] does not immediately have the required specialist. ED course: Still awaiting [facility] to call back for acceptance. There system was down so still pending approval . 18:56 ED course: I discussed the patient with Dr. Tucker whom accepted admission. Requests jmm lowering blood pressure to 160 systolic before transfer. . 04/10 10:18 Order name: Basic Metabolic Panel; Complete Time: 11:04/10 10:18 Order name: CBC with Diff; Complete Time: :04/10 10:18 Order name: LFT's; Complete Time: :04/10 10:18 Order name: Magnesium; Complete Time: 04/10 10:18 Order name: NT PRO-BNP; Complete Time: :04/10 10:18 Order name: PT-INR; Complete Time: :04/10 10:18 Order name: Troponin (emerg Dept Use Only); Complete Time: 11:04/10 10:20 Order name: Lipase; Complete Time: 11:04/10 11:10 Order name: CREATININE WHOLE BLOOD; Complete Time: 11:26 [facility] 04/10 12:37 Order name: COVID-19 Plasma 04/10 12:39 Order name: ABO/RH typing [facility] 04/10 13:29 Order name: ABO/RH no charge; Complete Time: 14:10 [facility] 04/10 15:07 Order name: SARS-COV-2 RT PCR; Complete Time: 17:10 [facility] 04/10 10:18 Order name: CT Abd/Pelvis - IV Contrast Only; Complete Time: 11:11 04/10 10:20 Order name: Shuntogram XRAY; Complete Time: 11:50 04/10 10:18 Order name: EKG; Complete Time: 10:19 04/10 10:18 Order name: Cardiac monitoring; Complete Time: 11:06 04/10 10:18 Order name: EKG - Nurse/Tech; Complete Time: 12:12 04/10 10:18 Order name: IV Saline Lock; Complete Time: 11:04/10 10:18 Order name: Labs collected and sent; Complete Time: 04/10 10:18 Order name: O2 Per Protocol; Complete Time: 04/10 10:18 Order name: O2 Sat Monitoring; Complete Time: : Administered Medications: 10:26 Drug: Dilaudid 2 mg Route: IVP; Site: right hand; aa5 10:35 Follow up: Response: No adverse reaction aa5 10:26 Drug: Zofran (Ondansetron) 4 mg Route: IVP; Site: right hand; aa5 10:35 Follow up: Response: No adverse reaction aa5 13:43 Drug: Dilaudid 1 mg Route: IVP; Site: right antecubital; aa5 13:50 Follow up: Response: No adverse reaction aa5 13:43 Drug: Zofran (Ondansetron) 4 mg Route: IVP; Site: right antecubital; aa5 13:50 Follow up: Response: No adverse reaction aa5 17:15 Drug: Phenergan 12.5 mg Route: IVP; Site: right antecubital; aa5 17:20 Follow up: Response: No adverse reaction aa5 17:15 Drug: Dilaudid 0.5 mg Route: IVP; Site: right antecubital; aa5 17:20 Follow up: Response: No adverse reaction aa5 19:23 Drug: Dilaudid 0.5 mg {Note: RASS 0.} Route: IVP; Site: right antecubital; ea 20:00 Follow up: Response: No adverse reaction; Pain is decreased ea 19:25 Drug: Labetalol 10 mg Route: IVP; Site: right antecubital; ea 19:38 Follow up: Response: No adverse reaction; Blood pressure is lowered ea 21:52 Drug: Zofran (Ondansetron) 4 mg Route: IVP; Site: right antecubital; ea 23:05 Follow up: Response: No adverse reaction; Nausea is decreased ea 21:58 Drug: Dilaudid 1 mg {Note: RASS 0.} Route: IVP; Site: right antecubital; ea 23:04 Follow up: Response: No adverse reaction; Pain is decreased; RASS: Alert and Calm (0) ea 22:00 Drug: hydrALAZINE 10 mg Route: IV; Rate: calculated rate; Site: right antecubital; ea 22:40 Follow up: Response: No adverse reaction; IV Status: Completed infusion ea 22:41 Drug: Lisinopril 20 mg Route: PO; ea 23:18 Follow up: Response: No adverse reaction; Blood pressure is lowered ea 23:04 Drug: Labetalol 20 mg Route: IVP; Infused Over: 2 mins; Site: right antecubital; ea 23:18 Follow up: Response: No adverse reaction; Blood pressure is lowered ea 23:28 Drug: cloNIDine 0.2 mg Route: PO; ea 23:42 Follow up: Response: No adverse reaction ea 04/11 01:24 Not Given (Hemodynamic Parameters): niCARdipine (25mg/250ml) 5 mg/hr IV at calculated ea rate continuous; Adjust 2.5 mg/hr every 10 minutes to keep SBP between 140 mmHg and 120 mmHg. Range 0 to 15 mg/hr. Wean to minimum required dose. 02:33 Drug: Dilaudid 1 mg Route: IVP; Site: right antecubital; ea 02:36 Follow up: Response: RASS: Alert and Calm (0); Medication adminsitered at transfer ea Disposition: 04/10/20 19:14 Transfer ordered to [facility]. Diagnosis are Headache, INSPECTOR SOLDERING Shunt Malfunction. - Reason for transfer: Higher level of care. - Accepting physician is Tucker. - Condition is Stable. - Problem is new. - Symptoms are unchanged. Addendum: 04/12/2020 19:29 Co-signature as Attending Physician, Steven Hill MD. r n Signatures: Dispatcher [employer] EDVA Kade Kimble PA PA jmm Nieto, Roman, MD MD rn Calderon, Audri, RN RN aa5 Willy Bhat PA PA jr8 Antoinette Zuniga RN RN ea Corrections: (The following items were deleted from the chart) 04/10 10:26 10:19 Chest Single View+RAD.RAD.BRZ ordered. EDVA EDVA 15:07 12:59 CORONAVIRUS+MR.LAB.BRZ ordered. EDVA EDVA 04/11 02:39 04/10 19:14 04/10/2020 19:14 Transfer ordered to [facility]. Diagnosis is ea Headache; INSPECTOR SOLDERING Shunt Malfunction. Reason for transfer: Higher level of care. Accepting physician is Garrett. Condition is Stable. Problem is new. Symptoms are unchanged. renato
[2020-04-10] MEDS ORDERED: LABETALOL 20 MG/4ML SYRINGE IV ONE ×2 (19:26→23:09)
[2020-04-10] MEDS ORDERED: HYDRALAZINE HCL 20 MG/ML VIAL ONE (21:56)
[2020-04-10] MEDS ORDERED: lisinopriL 20 MG TAB ONE (22:49)
[2020-04-10] MEDS ORDERED: cloNIDine HCL 0.1 MG TAB ONE (23:34)
[2020-04-11] MEDS ORDERED: HYDROMORPHONE HCL 1 MG/ML INJ ONE (02:34)
[2020-04-11 05:25] VITALS: TEMP 97.8
[2020-04-11 05:26] VITALS: BP 156/90; O2SAT 98
== END 2020-04-11 02:39 | disposition short-term general hospital (02) ==
LOC: ER 10:07
DX: T85.09XA Other mechanical complication of ventricular intracranial (communicating) shunt, initial encounter (principal); Z91.048 Other nonmedicinal substance allergy status; Z88.3 Allergy status to other anti-infective agents; Z88.5 Allergy status to narcotic agent; Z88.6 Allergy status to analgesic agent; Z88.8 Allergy status to other drugs, medicaments and biological substances; Z91.040 Latex allergy status; Z20.828 Contact with and (suspected) exposure to other viral communicable diseases
CPT/HCPCS: 36415; 49427; 74177; 75809; 80048; 80076; 82565; 83690; 83735; 83880; 84484; 85025; 85610; 86900; 86901; 93005; 99285; J0360; J1170; J2405; J2550; Q9967; U0003

== ENCOUNTER 2021-01-09 16:49 | Emergency (ER) | payer SELFPAY ==
[2021-01-09 17:36] LABS: Absolute Lymphocytes (CBC) 3.4 K/uL (0.7-4.9); Basophils % 1.2 % (0-1.3); Hematocrit 41.7 % (36.0-45.0); Lymphocytes % 25.7 % (15.3-44.8); MPV 9.5 fL (7.6-11.3); RBC Red Blood Cell Count 5.01 M/uL (3.86-4.86)
[2021-01-09 17:39] LABS: Protime INR 1.15
[2021-01-09] MEDS ORDERED: MEPERIDINE HCL 25 MG/ML SYR ONE ×3 (17:49→22:26)
[2021-01-09] MEDS ORDERED: PROMETHAZINE INJ 25 MG/ML AMP ONE (17:49)
[2021-01-09] MEDS ORDERED: MECLIZINE HCL 12.5 MG TAB ONE (17:49)
[2021-01-09] MEDS ORDERED: NA CHLORIDE 0.9% 500 ML ONE (17:49)
[2021-01-09 17:55] LABS: ALT/SGPT 42 U/L (12-78); AST/SGOT 19 U/L (15-37); Albumin 3.5 g/dL (3.4-5.0); Alkaline Phosphatase 84 U/L (45-117); BUN Blood Urea Nitrogen 11 mg/dL (7-18); Bicarbonate 23 mmol/L (21-32); Bilirubin Direct < 0.1 mg/dL (0-0.2); Bilirubin Total 0.2 mg/dL (0.2-1.0); Glucose Level 109 mg/dL (74-106); Lipase 96 U/L (73-393); Magnesium 2.1 mg/dL (1.8-2.4); NT PRO-BNP 203 pg/mL (<125); Potassium 3.5 mmol/L (3.5-5.1); Protein, Total 7.8 g/dL (6.4-8.2); Sodium Level 143 mmol/L (136-145); Troponin (Emerg Dept Use Only) < 0.02 ng/mL (0.0-0.045)
--- NOTE | 2021-01-09 18:28 | RAD REPORT ---
EXAM DESCRIPTION: RAD - Shuntogram - 01/09/2021 6:11 pm CLINICAL HISTORY: headache, abdominal pain COMPARISON: Shuntogram dated 04/10/2020 FINDINGS: Right-sided shunt tubing is present. No kink or break in the tubing is identified. No calv arial abnormality of concern. The lungs are clear. The heart is in size. The bowel gas pattern is non obstructive. No pathologic calcifications. IMPRESSION: Negative study.
[2021-01-09] MEDS ORDERED: LABETALOL 20 MG/4ML SYRINGE IV ONE (20:19)
--- NOTE | 2021-01-09 20:24 | RAD REPORT ---
EXAM DESCRIPTION: CT - Head Brain Wo Cont - 01/09/2021 8:15 pm CLINICAL HISTORY: HEADACHE Headache, drowsiness COMPARISON: No comparisons TECHNIQUE: All CT scans are performed using dose optimization technique as appropriate and may inclu de automated exposure control or mA/KV adjustment according to patient size. FINDINGS: No intracranial hemorrhage, hydrocephalus or extra-axial fluid collection.Right frontal ve ntriculostomy tube is noted.No areas of brain edema or evidence of midline shift. The paranasal sinuses and mastoids are clear. The calvarium is intact. IMPRESSION: No acute intracranial abnormality.
--- NOTE | 2021-01-09 20:33 | RAD REPORT ---
EXAM DESCRIPTION: CTAbdomen Pelvis W Contrast - 01/09/2021 8:15 pm CLINICAL HISTORY: Abdominal pain. ABD PAIN COMPARISON: Abdomen Pelvis W Contrast dated 04/10/2020; CT ABD PELVIS W CONTRAST dated 09/24/2007; H ead Brain Wo Cont dated 01/09/2021 TECHNIQUE: Biphasic CT imaging of the abdomen and pelvis was performed with 100 ml non-ionic IV cont rast. All CT scans are performed using dose optimization technique as appropriate and may include automated exposure control or mA/KV adjustment according to patient size. FINDINGS: Calcified 9 mm granuloma in the posterior right lung base noted. Mild diffuse fatty liver. The spleen, pancreas, right adrenal gland are normal. 11 mm nodule noted le ft adrenal gland. No renal mass or hydronephrosis. No bowel obstruction, free air, free fluid or abscess. Shunt tubing is seen including in the right ab domen. The appendix is normal. No evidence of significant lymphadenopathy. No suspicious bony findings. IMPRESSION: No acute intra-abdominal or pelvic finding. Mild fatty liver.
[2021-01-09] MEDS ORDERED: LORazepam 2 MG/ML VIAL ONE (22:26)
[2021-01-09] MEDS ORDERED: NA CHLORIDE 0.9% 1,000 ML ONE (22:27)
--- NOTE | 2021-01-09 23:23 | ER ---
Nurse's Notes [facility] Name: Meron Gagnon Age: 40 yrs Sex: Female : 1980 Arrival Date: 01/09/2021 Time: 16:49 Bed 2 Private MD: Diagnosis: Headache Presentation: 01/09 16:50 Chief complaint: EMS states: HEADACHE AND DIZZINESS. Coronavirus screen: At this time, bp the client does not indicate any symptoms associated with coronavirus-19. Ebola Screen: No symptoms or risks identified at this time. Initial Sepsis Screen: Does the patient meet any 2 criteria? HR > 90 bpm. Does the patient have a suspected source of infection? No. Patient's initial sepsis screen is negative. Risk Assessment: Do you want to hurt yourself or someone else? Patient reports no desire to harm self or others. Onset of symptoms is unknown. 16:50 Method Of Arrival: EMS: [facility] bp 16:50 Acuity: DIXIE 3 bp Triage Assessment: 16:56 Headache History: The patient has had previous headaches and this one is similar to bp previous episodes, and this one is more severe than previous episodes. General: Appears distressed, uncomfortable, obese, Behavior is cooperative, appropriate for age, anxious. Pain: Complains of pain in head Pain currently is 8 out of 10 on a pain scale. Pain began. EENT: No deficits noted. Neuro: Level of Consciousness is awake, alert, obeys commands. Cardiovascular: No deficits noted. Respiratory: No deficits noted. GI: No signs and/or symptoms were reported involving the gastrointestinal system. : No signs and/or symptoms were reported regarding the genitourinary system. Derm: No deficits noted. Musculoskeletal: No deficits noted. 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 - Social history:: Smoking status: unknown. Screenin:07 Abuse screen: Denies threats or abuse. Denies injuries from another. Nutritional bp screening: No deficits noted. Tuberculosis screening: No symptoms or risk factors identified. Fall Risk None identified. Assessment: 17:06 General: SEE TRIAGE NOTE. bp 18:00 Reassessment: No changes from previously documented assessment. Patient and/or family bp updated on plan of care and expected duration. Pain level reassessed. PT RETURNED FROM RAD. 20:30 Reassessment: Patient and/or family updated on plan of care and expected duration. Pain ea level reassessed. Pt refusing vital signs, states "please do not take my blood pressure, I have IV in both my hands I don't want the blood pressure cuff on my arm". 21:33 Reassessment: refused for Blood pressure, provider aware. rr5 23:37 Reassessment: Patient and/or family updated on plan of care and expected duration. Pain ea level reassessed. Patient is alert, oriented x 3, equal unlabored respirations, skin warm/dry/pink. Discharge instruction given to patient verbalized the understanding of instruction. pt left ED ambulatory tolerating well. Vital Signs: 16:50 BP 203 / 112; Pulse 120; Resp 24; Temp 97.8; Pulse Ox 100% on R/A; bp 17:39 BP 190 / 113; Pulse 111; Resp 19; Pulse Ox 97% ; bp 18:37 BP 198 / 125; Pulse 110; Resp 19; Pulse Ox 100% ; bp 21:33 rr5 22:48 BP 203 / 116; Pulse 99; Resp 18; Pulse Ox 98% ; rr5 22:50 BP 166 / 105; ea 23:22 BP 166 / 103; Pulse 94; Resp 19; Pulse Ox 100% ; rr5 21:33 refused for V/S rr5 ED Course: 16:49 Patient arrived in ED. bp 16:50 Andrew Mayer PA is PHCP. cp 16:50 Babar Reynoso MD is Attending Physician. cp 16:52 Triage completed. bp 17:06 Arm band placed on. bp 17:07 Patient has correct armband on for positive identification. Bed in low position. Call bp light in reach. Side rails up X2. 17:13 Mack Merrill, RN is Primary Nurse. bp 17:20 Inserted saline lock: 22 gauge in right hand, using aseptic technique. Blood collected. bp 18:09 Shuntogram XRAY In Process Unspecified. EDMS 19:49 Inserted saline lock: 20 gauge in left wrist, using aseptic technique. rr5 20:14 CT Head Brain wo Cont In Process Unspecified. EDMS 20:15 CT Abd/Pelvis - IV Contrast Only In Process Unspecified. EDMS 23:38 No provider procedures requiring assistance completed. IV discontinued, intact, ea bleeding controlled, No redness/swelling at site. Pressure dressing applied. Administered Medications: 17:20 Drug: NS 0.9% 500 ml Route: IV; Rate: bolus; Site: right hand; bp 17:20 Drug: Demerol (meperidine) 25 mg Route: IVP; Site: right hand; bp 19:00 Follow up: Response: No adverse reaction; RASS: Alert and Calm (0) ea 17:20 Drug: Phenergan (promethazine) 25 mg Route: IVP; Site: right hand; bp 19:00 Follow up: Response: No adverse reaction ea 17:20 Drug: Meclizine 25 mg Route: PO; bp 19:00 Follow up: Response: No adverse reaction ea 20:25 Drug: Demerol (meperidine) 25 mg Route: IVP; Site: right wrist; ea 21:00 Follow up: Response: No adverse reaction; Pain is decreased; RASS: Alert and Calm (0) ea 20:30 Not Given (Patient Refused): Trandate (labetalol) 20 mg IVP once; Over 2 minutes ea 21:53 CANCELLED (Physician Discretion): Ativan (LORazepam) 1 mg IVP once cp 22:08 Not Given (Other Intervention Used): Demerol (meperidine) 12.5 mg IVP once; RASS on rr5 ADMIN: Combtv4, Very Agttd3, Agttd2, Rstlss1, AlertClm0, Drwsy-1, Lt Sdtn-2, Mod Sdtn-3, Dp Sdtn-4, UnArsble-5 22:20 Drug: NS 0.9% 1000 ml Route: IV; Rate: 1 bolus; Site: right antecubital; cr4 23:30 Follow up: IV Status: Completed infusion; IV Intake: 1000ml ea 22:21 Drug: Demerol (meperidine) 25 mg Route: IVP; Site: right antecubital; cr4 23:00 Follow up: Response: No adverse reaction ea 22:22 Drug: Ativan (LORazepam) 0.5 mg Route: IVP; Site: right antecubital; cr4 23:00 Follow up: Response: No adverse reaction ea 22:42 Drug: Trandate (labetalol) 20 mg Route: IVP; Site: right wrist; rr5 23:00 Follow up: Response: No adverse reaction ea 22:50 Drug: NS 0.9% 500 ml Route: IV; Rate: bolus; Site: right wrist; ea Intake: 23:30 IV: 1000ml; Total: 1000ml. ea Outcome: 23:22 Discharge ordered by MD. cp 23:38 Discharged to home ambulatory. ea 23:38 Condition: stable 23:38 Discharge instructions given to patient, Instructed on discharge instructions, follow up and referral plans. Demonstrated understanding of instructions, follow-up care. 23:39 Patient left the ED. ea Signatures: Dispatcher [employer] EDMS Mattie Navarrete, RN RN cr4 Andrew Mayer PA PA cp Antunez, Elena RN RN ea Mack Merrill RN RN Juan Al RN RN rr5 Corrections: (The following items were deleted from the chart) 23:23 23:22 BP 185 / 103; Pulse 94bpm; Resp 19bpm; Pulse Ox 100%; rr5 rr5
--- NOTE | 2021-01-09 23:23 | EDPHYS ---
Physician Documentation [facility] Name: Meron Gagnon Age: 40 yrs Sex: Female : 1980 Arrival Date: 01/09/2021 Time: 16:49 Bed 2 Private MD: ED Physician Babar Reynoso HPI: 01/09 17:05 This 40 yrs old Female presents to ER via EMS with complaints of Headache, cp Blood Pressure Problem. 17:05 The patient complains of pain to the right side of head. The patient describes the cp headache as aching, constant. 17:05 Associated signs and symptoms: Pertinent positives: dizziness, nausea, neck pain, right cp flank and abdomen pain. 17:05 Severity of symptoms: in the emergency department the pain is unchanged, despite EMS cp interventions. Headache History: The patient has had previous headaches and this one is similar to previous episodes. 17:05 Patient with history of FLOORMAN shunt placed with last revision in 2019. 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 - Social history:: Smoking status: unknown. ROS: 17:10 Constitutional: Negative for body aches, chills, fever, poor PO intake. cp 17:10 Eyes: Negative for injury, pain, redness, and discharge. cp 17:10 ENT: Negative for ear pain, sore throat, difficulty swallowing, difficulty handling secretions. 17:10 Neck: Positive for pain with movement, pain at rest. 17:10 Cardiovascular: Negative for chest pain, palpitations. 17:10 Respiratory: Negative for cough, shortness of breath, wheezing. 17:10 Abdomen/GI: Positive for abdominal pain, nausea, Negative for diarrhea, constipation, active vomiting. 17:10 Back: Positive for pain at rest, pain with movement. 17:10 Skin: Positive for rash, diffusely. 17:10 Neuro: Positive for headache, Negative for altered mental status, numbness, syncope, weakness. 17:10 All other systems are negative. Exam: 17:15 Head/Face: Normocephalic, atraumatic. cp 17:15 Constitutional: The patient appears in no acute distress, alert, awake, non-diaphoretic, non-toxic, well developed, well nourished, obese, uncomfortable. 17:15 Eyes: Periorbital structures: appear normal, Pupils: equal, round, and reactive to cp light and accomodation, Extraocular movements: intact throughout, Conjunctiva: normal, no exudate, no injection, Sclera: no appreciated abnormality, Lids and lashes: appear normal, bilaterally. 17:15 ENT: External ear(s): are unremarkable, Nose: is normal, Mouth: Lips: moist, Oral mucosa: moist, Posterior pharynx: Airway: no evidence of obstruction, patent. 17:15 Neck: ROM/movement: pain, that is moderate, with extension, with flexion, limited range of motion, is not appreciated, Meningeal signs: are not present, nuchal rigidity, is not appreciated. 17:15 Chest/axilla: Inspection: normal, Palpation: is normal, no crepitus, no tenderness. 17:15 Cardiovascular: Rate: tachycardic, Rhythm: regular, Edema: is not appreciated, JVD: is not appreciated. 17:15 Respiratory: the patient does not display signs of respiratory distress, Respirations: normal, no use of accessory muscles, no retractions, labored breathing, is not present, Breath sounds: are clear throughout, no decreased breath sounds, no stridor, no wheezing. 17:15 Abdomen/GI: Inspection: abdomen appears normal, Bowel sounds: active, all quadrants, Palpation: severe abdominal tenderness, in the posterior aspect of right lateral abdomen, anterior aspect of right lateral abdomen and right upper quadrant. 17:15 Back: pain, that is severe, of the right mid back, ROM is painful. 17:15 Skin: consistent with psoriasis, and is diffusely located. 17:15 Neuro: Orientation: to person, place \\T\\ time. Mentation: is normal, Cerebellar function: is grossly normal, Motor: moves all fours, strength is normal, Sensation: is normal. Vital Signs: 16:50 BP 203 / 112; Pulse 120; Resp 24; Temp 97.8; Pulse Ox 100% on R/A; bp 17:39 BP 190 / 113; Pulse 111; Resp 19; Pulse Ox 97% ; bp 18:37 BP 198 / 125; Pulse 110; Resp 19; Pulse Ox 100% ; bp 21:33 rr5 22:48 BP 203 / 116; Pulse 99; Resp 18; Pulse Ox 98% ; rr5 22:50 BP 166 / 105; ea 23:22 BP 166 / 103; Pulse 94; Resp 19; Pulse Ox 100% ; rr5 21:33 refused for V/S rr5 MDM: 16:59 Patient medically screened. cp 18:00 Differential diagnosis: hyponatremia, meningitis, meningoencephalitis, migraine, cp subarachnoid bleed, subdural hematoma, tension headache, FLOORMAN shunt malfunction. 23:20 Data reviewed: vital signs, nurses notes, lab test result(s), EKG, radiologic studies, cp CT scan, plain films. 23:20 Counseling: I had a detailed discussion with the patient and/or guardian regarding: the cp historical points, exam findings, and any diagnostic results supporting the discharge/admit diagnosis, the presence of at least one elevated blood pressure reading (>120/80) during this emergency department visit, lab results, radiology results. Response to treatment: the patient's symptoms have mildly improved after treatment. ED course: VS noted. Discussed results of labs and radiology studies that returned negative for acute findings. Discussed attempt to transfer for neurosurgery consult due to continued elevated blood pressure and pain. patient declines at this time and requests discharge to home. Recommend f/u with pcp concerning blood pressure and neurosurgery concerning headache and dizziness. 01/09 17:01 Order name: Basic Metabolic Panel 01/09 17:01 Order name: CBC with Diff; Complete Time: 17:52 01/09 17:53 Interpretation: Normal except: WBC 13.30; RBC 5.01; NEUT A 8.7. 01/09 17:01 Order name: LFT's; Complete Time: 18:22 11 18:22 Interpretation: Normal except: GLOB 4.3; A/G 0.8. 01/09 17:01 Order name: Magnesium; Complete Time: 18:22 01/09 17:01 Order name: NT PRO-BNP; Complete Time: 18:22 01/09 17:01 Order name: PT-INR; Complete Time: 17:52 01/09 17:53 Interpretation: Abnormal: PT 13.2. 01/09 17:01 Order name: Shuntogram XRAY; Complete Time: 18:44 01/09 18:44 Interpretation: Report reviewed. 01/09 17:01 Order name: Troponin (emerg Dept Use Only); Complete Time: 18:22 01/09 19:13 Interpretation: TROPED < 0.02; Reviewed. 01/09 17:02 Order name: Basic Metabolic Panel; Complete Time: 18:22 EDMS 01/09 18:23 Interpretation: Normal except: CL 112; GLUC 109; GFR 75. 01/09 17:02 Order name: Lipase; Complete Time: 18:22 01/09 18:49 Order name: CT Head Brain wo Cont; Complete Time: 20:55 01/09 20:55 Interpretation: Report reviewed. 01/09 18:49 Order name: CT Abd/Pelvis - IV Contrast Only; Complete Time: 20:55 01/09 17:01 Order name: EKG; Complete Time: 17:02 01/09 17:01 Order name: IV Saline Lock; Complete Time: 17:23 01/09 17:01 Order name: Labs collected and sent; Complete Time: 17:23 01/09 17:01 Order name: O2 Per Protocol; Complete Time: 17:23 01/09 17:01 Order name: O2 Sat Monitoring; Complete Time: 17:23 cp Administered Medications: 17:20 Drug: NS 0.9% 500 ml Route: IV; Rate: bolus; Site: right hand; bp 17:20 Drug: Demerol (meperidine) 25 mg Route: IVP; Site: right hand; bp 19:00 Follow up: Response: No adverse reaction; RASS: Alert and Calm (0) ea 17:20 Drug: Phenergan (promethazine) 25 mg Route: IVP; Site: right hand; bp 19:00 Follow up: Response: No adverse reaction ea 17:20 Drug: Meclizine 25 mg Route: PO; bp 19:00 Follow up: Response: No adverse reaction ea 20:25 Drug: Demerol (meperidine) 25 mg Route: IVP; Site: right wrist; ea 21:00 Follow up: Response: No adverse reaction; Pain is decreased; RASS: Alert and Calm (0) ea 20:30 Not Given (Patient Refused): Trandate (labetalol) 20 mg IVP once; Over 2 minutes ea 21:53 CANCELLED (Physician Discretion): Ativan (LORazepam) 1 mg IVP once cp 22:08 Not Given (Other Intervention Used): Demerol (meperidine) 12.5 mg IVP once; RASS on rr5 ADMIN: Combtv4, Very Agttd3, Agttd2, Rstlss1, AlertClm0, Drwsy-1, Lt Sdtn-2, Mod Sdtn-3, Dp Sdtn-4, UnArsble-5 22:20 Drug: NS 0.9% 1000 ml Route: IV; Rate: 1 bolus; Site: right antecubital; cr4 23:30 Follow up: IV Status: Completed infusion; IV Intake: 1000ml ea 22:21 Drug: Demerol (meperidine) 25 mg Route: IVP; Site: right antecubital; cr4 23:00 Follow up: Response: No adverse reaction ea 22:22 Drug: Ativan (LORazepam) 0.5 mg Route: IVP; Site: right antecubital; cr4 23:00 Follow up: Response: No adverse reaction ea 22:42 Drug: Trandate (labetalol) 20 mg Route: IVP; Site: right wrist; rr5 23:00 Follow up: Response: No adverse reaction ea 22:50 Drug: NS 0.9% 500 ml Route: IV; Rate: bolus; Site: right wrist; ea Disposition: 01/09/21 23:22 Discharged to Home. Impression: Headache. - Condition is Stable. - Medication Reconciliation Form, Thank You Letter, Antibiotic Education, Prescription Opioid Use form. - Follow up: Private Physician; When: 2 - 3 days; Reason: Recheck today's complaints. - Problem is an ongoing problem. - Symptoms have improved. Addendum: 01/12/2021 11:15 Co-signature as Attending Physician, Babar Reynoso MD I agree with the assessment and k dr plan of care. Signatures: Dispatcher [employer] EDMS Babar Reynoso MD MD kdr Ruiz, Claudia RN RN cr4 Andrew Mayer PA PA cp Antunez, Elena RN RN Mack Santoyo RN RN Juan Al RN RN rr5 Corrections: (The following items were deleted from the chart) 01/09 17:04 17:02 Chest Single View+[email or web address].[email or web address] ordered. EDMS EDMS 21:53 21:52 Ativan (LORazepam) 1 mg IVP once ordered. cp cp 23:39 23:22 01/09/2021 23:22 Discharged to Home. Impression: Headache. Condition is Stable. ea Forms are Medication Reconciliation Form, Thank You Letter, Antibiotic Education, Prescription Opioid Use. Follow up: Private Physician; When: 2 - 3 days; Reason: Recheck today's complaints. Problem is an ongoing problem. Symptoms have improved. cp
[2021-01-09 23:48] VITALS: TEMP 97.8
[2021-01-09 23:55] VITALS: BP 166/103; O2SAT 100
== END 2021-01-09 23:39 | disposition home or self-care (01) ==
LOC: ER 16:49
DX: R51.9 Headache, unspecified (principal); Z98.2 Presence of cerebrospinal fluid drainage device
CPT/HCPCS: 36415; 49427; 70450; 74177; 75809; 80048; 80076; 83690; 83735; 83880; 84484; 85025; 85610; 93005; 99284; J2175; J2550; J7030; J7040; Q9967

== ENCOUNTER 2021-12-08 08:52 | Day surgery (SDC) | payer OTHER ==
[2021-12-08] MEDS ORDERED: LORAZEPAM 1 MG TABLET PO ONE (09:17)
[2021-12-08 09:38] VITALS: TEMP 98.5; BMI 38.6
[2021-12-08 09:41] LABS: Protime INR 1.19
[2021-12-08] MEDS ORDERED: DIPHENHYDRAMINE 25 MG TAB/CAP PO ONE (11:32)
[2021-12-08] MEDS ORDERED: DIPHENHYDRAMINE 25 MG TAB/CAP ONE (11:38)
[2021-12-08] MEDS ORDERED: HYDROCODONE/APAP 7.5/325 MG TAB ONE (13:11)
[2021-12-08] MEDS ORDERED: HYDROCODONE/APAP 7.5/325 MG TAB PO ONE (13:18)
[2021-12-08 14:14] VITALS: BP 133/72; O2SAT 100
--- NOTE | 2021-12-08 14:35 | RAD REPORT ---
EXAM DESCRIPTION: RAD - Lumbar Puncture For Dx - 12/08/2021 1:49 pm CLINICAL HISTORY: Benign intracranial hypertension COMPARISON: None. TECHNIQUE: The procedure, risks and alternatives to the procedure were discussed with the patient in detail. After answering all questions, both oral and written consent were obtained. Time-out proced ure was performed. Patient was pre-medicated with Ativan 1.0 milligrams PO and Benadryl 50 milligrams p.o. The patient was placed in an oblique prone position on the fluoroscopic table. The skin of the lower back was prepped and draped in the usual sterile fashion. After anesthetizing the skin and deeper sof t tissues with 1% lidocaine, a 22 gauge needle was advanced into the thecal sac at the L3 level. Intrathecal placement was confirmed. Clear colorless CSF was observed. A total of 19 milliliters of C SF was removed. Opening pressure was 19 cm H2O with closing pressure of 10 cm H2O. At the conclusion of the procedure, the needle was withdrawn and a sterile bandage placed over the pu ncture site. The patient tolerated the procedure well without immediate complications. Post-procedu re care and precaution instructions were discussed with the patient before the LP procedure. Patient was transferred back to same-day surgery for postprocedure monitoring. Fluoro time 1.0 min, Dose: 106.660 mGy DAP: 28.980 Gycm^2 IMPRESSION: Successful fluoroscopic guided lumbar puncture. All obtained fluid was sent to the lab for studies requested by the referring physician. Opening pressure was 19 cm H2O with closing pressure of 10 cm H2O.
[2021-12-08 19:41] LABS: Appearance CLEAR (CLEAR); Body Fluid Source CSF; Body Fluid WBC 2 /mm^3; Color of fluid Colorless (COLORLESS)
== END 2021-12-08 15:07 | disposition home or self-care (01) ==
LOC: DS 08:52 → EDSTATUS 10:00 → DS 15:07
PROVIDERS: ATTEND Psychiatry & Neurology Clinical Neurophysiology
PROC: 009U3ZX Drainage of Spinal Canal, Percutaneous Approach, Diagnostic (ICD-10-PCS; principal; 2021-12-08)
DX: G93.2 Benign intracranial hypertension (principal); H53.8 Other visual disturbances; R42 Dizziness and giddiness
CPT/HCPCS: 36415; 77003; 82040; 82042; 82784; 83916; 85610; 85730; 86362; 87070; 89050